=== PATIENT | female | born 1995 | race Caucasian/White ===

== ENCOUNTER 2019-06-02 08:33 | Outpatient (CLI) | payer OTHER, SELFPAY ==
--- NOTE | 2019-06-02 09:34 | US_ITS ---
WS: [id number] ULTRASOUND BREAST LEFT TECHNIQUE: Ultrasound left breast focused area of concern. CLINICAL INFORMATION: LT BREAST LUMP COMPARISON: None. FINDINGS: Ultrasound 9:00 position. Small echogenic focus measuring 4 x 3 mm likely represents a small lipoma. Tiny hypoechoic lesion at the 9:00 position measuring 3.6 x 2.3 mm appears to represent a tiny lymph node. No evidence of pathologic mass or lesion. No lesions to target for biopsy. Findings have a maciej gn appearance. US/US breast LT limited* [id number] IMPRESSION: BI-RADS 2 benign Follow up: Annual screening mammography age 38
== END 2019-06-02 08:34 | disposition home or self-care (01) ==
PROVIDERS: Family Provider Nurse Practitioner Family; PCP Nurse Practitioner Family; Visit Provider Nurse Practitioner
DX: N63.20 Unspecified lump in the left breast, unspecified quadrant (principal)
CPT/HCPCS: 76642

== ENCOUNTER 2019-08-27 06:58 | Day surgery (SDC) | payer OTHER, SELFPAY ==
[2019-08-27] VITALS (76 sets, daily range): BP systolic 119–174; BP diastolic 71–121; PULSE 82–113; RESP 13–25; TEMP 36.2–36.6; O2SAT 93–100; BMI 39.4
--- NOTE | 2019-08-27 07:08 | W.ED.ABDPA2 ---
HPI - Abdominal Pain General: Chief Complaint: Abdominal Pain Stated Complaint: ABD PAIN Time Seen by Provider: 08/27/19 07:08 History of Present Illness: HPI narrative: 23-year-old female with a known history of cholelithiasis has had problems intermittently for the last year she is learned to adapt her diet for the most part to avoid them. She previously had an appendectomy and a hysterectomy for endometriosis. She had considered getting gallbladder out and then seem to be able to control it by diet so it avoided at she last night she had some fast food and has severe right upper quadrant pain is biliary colic she is not in any vomiting but does severe nausea she denies any diarrhea or acholic stools she denies any hematemesis coffee-ground emesis no dysuria urgency or frequency. MD elicited complaint: abdominal pain Pertinent past history: other (Cholelithiasis) Onset (ago): hour(s) Location: Epigastric and RUQ Severity: severe Quality: cramping Radiation: R flank and back Exacerbating factors: eating Relieving factors: medication and rest Associated Symptoms: Denies bloating, chills, coffee ground emesis, constipation, diarrhea, dysuria, fever(s), hematochezia, hematemesis, melena, nausea and vomiting Treatments prior to arrival: prescription analgesics Review of Systems Const: Denies: fever, chills, body aches, change in appetite, fatigue or malaise ENMT: Denies: throat pain, ear pain, nasal discharge or nasal congestion Card: Denies: chest pain, edema, shortness of breath on exertion or shortness of breath when lying down Resp: Denies: shortness of breath, productive cough or non-productive cough GI: Denies: abdominal pain, nausea, vomiting, vomiting blood, coffee grounds in vomit, diarrhea, constipation, bloating, blood in stool or black tarry stool : Denies: flank pain, difficulty urinating, painful urination, urinary frequency or urinary urgency Skin/Breast: Denies: rash or itching [facility] ED PFSH: Medical History (Updated 08/27/19 @ 09:07 by Malvin Mariscal DO) Endometriosis Surgical History (Updated 08/27/19 @ 09:05 by Malvin Mariscal DO) H/O hysterectomy for benign disease S/P appendectomy Social History (Reviewed 08/27/19 @ 09:05 by GALILEO Ortiz Smoking and tobacco status: never smoked Physical Exam Const: COMMON NORMALS: no apparent distress GENERAL APPEARANCE: cooperative and comfortable ORIENTATION/CONSCIOUSNESS: Yes awake, Yes oriented to person, Yes oriented to place and Yes oriented to time HENMT: COMMON NORMALS: normocephalic, head/scalp atraumatic, hearing grossly normal bilaterally, external ears normal, EAC's normal, TM's normal bilaterally, nasal mucous membranes and turbinates normal, moist oral mucous membranes and oropharynx normal HEAD & SCALP: normocephalic and atraumatic NOSE: nasal mucous membranes and turbinates normal EXTERNAL EAR: Yes external ears normal EXTERNAL AUDITORY CANAL: EAC's normal TYMPANIC MEMBRANE: TM's normal bilaterally Eye: COMMON NORMALS: PERRL, EOMs intact bilaterally, conjunctivae normal and no scleral icterus CONJUNCTIVA: Yes conjunctivae normal PUPIL: Yes PERRL Neck/C-Spine: COMMON NORMALS: full ROM, no lymphadenopathy, supple and no JVD Lymph: LYMPHATIC: no lymphadenopathy noted and no lymphedema noted Resp: COMMON NORMALS: normal respiratory effort, no retractions, no use of accessory muscles and clear to auscultation bilaterally AUSCULTATION: clear to auscultation bilaterally Cardio: COMMON NORMALS: no JVD, regular rate, regular rhythm and no murmurs RATE: regular rate RHYTHM: regular rhythm GI: COMMON NORMALS: soft to palpation and no hepatosplenomegaly AUSCULTATION: Yes normoactive bowel sounds PALPATION: Yes soft, Yes tender Details: RUQ, No guarding and Yes no hepatosplenomegaly OTHER: Positive Castellanos sign Extremity: COMMON NORMALS: normal to inspection, normal capillary refill, no clubbing, cyanosis or edema, no calf tenderness and no pedal edema Neuro: SENSORIUM/ORIENTATION: Yes oriented to person, Yes oriented to place and Yes oriented to time Skin: COMMON NORMALS: no rashes or lesions noted GENERAL SKIN EXAM: no rashes or lesions noted Course Vital Signs: Vital signs: Vital Signs Temperature 97.5 F L 08/27/19 07:02 Pulse Rate 93 08/27/19 09:00 Respiratory Rate 16 08/27/19 09:00 Blood Pressure 150/94 08/27/19 09:55 Pulse Oximetry 99 08/27/19 09:50 MDM - Abdominal Pain MDM Narrative: Medical decision making narrative: Discussed with Dr. Carr and the patient. She has been having recurrent biliary colic. She is controlled at this point by avoiding particular foods she does not have any sign of infection but she is having uncontrollable pain and nausea here in the emergency room. After discussion both patient and the surgeon which is decided to go ahead with cholecystectomy. Patient will be admitted via Dr. Carr for laparoscopic cholecystectomy Medical Records: Attestation: I reviewed the patient's medical records. Lab Data: Attestation: I reviewed the patient's lab results. Labs: Lab Results 08/27/19 08/27/19 08/27/19 Range/Units 07:23 07:26 07:49 WBC 7.9 (4.0-10.0) 10^3/ uL RBC 4.98 (4.1-5.3) 10^6/u L Hgb 14.0 (11.5-15.3) g/dL Hct 44.7 (37.0-47.0) % MCV 89.8 (81-99) fL MCH 28.1 (28.0-34.0) pg MCHC 31.3 (30.0-36.0) g/dL RDW 13.2 (12.1-15.1) % Plt Count 331 (130-400) 10^3/c mm MPV 12.2 H (7.4-10.4) fL Neut % (Auto) 59.0 % Lymph % (Auto) 31.0 % [place] % (Auto) 5.6 % Eos % (Auto) 2.8 % Baso % (Auto) 0.6 % Neut # (Auto) 4.6 (1.8-7.7) 10^3/u L Lymph # (Auto) 2.4 (0.8-4.8) 10^3/u L [place] # (Auto) 0.4 (0.2-0.9) 10^3/u L Eos # (Auto) 0.2 (0.0-0.8) 10^3/u L Baso # (Auto) 0.1 (0.0-0.1) 10^3/u L Nucleated RBC % (a uto) 0 % Nucleated RBCs # 0.0 /100WBC Sodium (136-145) mmol/L Potassium (3.5-5.1) mmol/L Chloride (98-107) mmol/L Carbon Dioxide (22-29) mmol/L Anion Gap (5-19) BUN (6-20) mg/dL Creatinine (0.5-0.9) mg/dL GFR Calculation (90-130) mL/min Glucose (65-115) mg/dL Calculated Osmolal ity (285-295) mOsm/k g Calcium (8.5-10.5) mg/dL Total Bilirubin (0.15-1.2) mg/dL AST (0-32) U/L ALT (0-33) U/L Alkaline Phosphata se (35-105) IU/L Total Protein (6.6-8.7) g/dL Albumin (3.5-5.2) g/dL Globulin (1.3-4.6) g/dL Lipase (13-60) U/L Urine Color Yellow (Yellow) Urine Appearance Clear (CLEAR) Urine pH 7 (5-7) Ur Specific Gravit y 1.020 (1.005-1.030) Urine Protein Neg (Negative) Urine Glucose (UA) Norm (Normal) Urine Ketones Negative (Negative) Urine Blood Neg (Negative) Urine Nitrate Negative (Negative) Urine Bilirubin Neg (NEGATIVE) Urine Urobilinogen Norm (Negative) mg/dL Ur Leukocyte [place] Negative (Negative) Urine HCG, Qual Negative (Negative) 08/27/19 Range/Units 08:18 WBC (4.0-10.0) 10^3/ uL RBC (4.1-5.3) 10^6/u L Hgb (11.5-15.3) g/dL Hct (37.0-47.0) % MCV (81-99) fL MCH (28.0-34.0) pg MCHC (30.0-36.0) g/dL RDW (12.1-15.1) % Plt Count (130-400) 10^3/c mm MPV (7.4-10.4) fL Neut % (Auto) % Lymph % (Auto) % [place] % (Auto) % Eos % (Auto) % Baso % (Auto) % Neut # (Auto) (1.8-7.7) 10^3/u L Lymph # (Auto) (0.8-4.8) 10^3/u L [place] # (Auto) (0.2-0.9) 10^3/u L Eos # (Auto) (0.0-0.8) 10^3/u L Baso # (Auto) (0.0-0.1) 10^3/u L Nucleated RBC % (a uto) % Nucleated RBCs # /100WBC Sodium 138 (136-145) mmol/L Potassium 4.2 (3.5-5.1) mmol/L Chloride 103 (98-107) mmol/L Carbon Dioxide 23 (22-29) mmol/L Anion Gap 16.2 (5-19) BUN 19 (6-20) mg/dL Creatinine 0.7 (0.5-0.9) mg/dL GFR Calculation 102.0 (90-130) mL/min Glucose 105 (65-115) mg/dL Calculated Osmolal ity 283 L (285-295) mOsm/k g Calcium 9.9 (8.5-10.5) mg/dL Total Bilirubin 0.3 (0.15-1.2) mg/dL AST 21 (0-32) U/L ALT 28 (0-33) U/L Alkaline Phosphata se 102 (35-105) IU/L Total Protein 7.7 (6.6-8.7) g/dL Albumin 4.6 (3.5-5.2) g/dL Globulin 3.1 (1.3-4.6) g/dL Lipase 42 (13-60) U/L Urine Color (Yellow) Urine Appearance (CLEAR) Urine pH (5-7) Ur Specific Gravit y (1.005-1.030) Urine Protein (Negative) Urine Glucose (UA) (Normal) Urine Ketones (Negative) Urine Blood (Negative) Urine Nitrate (Negative) Urine Bilirubin (NEGATIVE) Urine Urobilinogen (Negative) mg/dL Ur Leukocyte Alena ase (Negative) Urine HCG, Qual (Negative) Discharge Plan Discharge Patient Disposition: Admitted As Inpatient Clinical Impression: Cholelithiasis, Recurrent biliary colic Condition: Stable Referrals: Fortunato Rush APN [Primary Care Provider] - Coding Level of Care Code ED Geochemical Manager for Chg Fwd Exam Comprehensive
--- NOTE | 2019-08-27 07:12 | USR_ITS ---
PROCEDURE INFORMATION: Exam: US Abdomen Limited, Right Upper Quadrant Exam date and time: 08/27/2019 8:05 AM Age: 23 years old Clinical indication: Abdominal pain; Epigastric; Additional info: Ruq abd pain TECHNIQUE: Imaging protocol: Real-time ultrasound of the abdomen with image documentation. Examination was focused on the right upper quadrant. COMPARISON: No relevant prior studies available. FINDINGS: Liver: Mild fatty liver. Gallbladder: There are stones in the gallbladder. No wall thickening. Common bile duct: No stones. No dilation. Pancreas: The pancreas was not seen due to overlying bowel gas. Right kidney: No mass. No hydronephrosis. US/US gall bladder [id number] IMPRESSION: Cholelithiasis.
[2019-08-27 08:10] LABS: Add Urine Microscopic? NO
[2019-08-27 08:12] LABS: Basophils # 0.1 10^3/uL (0.0-0.1); Basophils % 0.6 %; Eosinophils # 0.2 10^3/uL (0.0-0.8); Eosinophils % 2.8 %; Hematocrit 44.7 % (37.0-47.0); Lymphocytes # 2.4 10^3/uL (0.8-4.8); Mean Corpuscular HGB Conc 31.3 g/dL (30.0-36.0); Mean Corpuscular Hemoglobin 28.1 pg (28.0-34.0); Mean Corpuscular Volume 89.8 fL (81-99); Mean Platelet Volume 12.2 fL (7.4-10.4); Monocytes # 0.4 10^3/uL (0.2-0.9); Monocytes % 5.6 %; Neutrophils # 4.6 10^3/uL (1.8-7.7); Nucleated Red Blood Cells % 0 %; Platelet Count 331 10^3/cmm (130-400); Red Blood Count 4.98 10^6/uL (4.1-5.3); Red Cell Distribution Width 13.2 % (12.1-15.1); White Blood Count 7.9 10^3/uL (4.0-10.0)
[2019-08-27 08:22] LABS: Bilirubin Urine Neg (NEGATIVE); Blood Urine Neg (Negative); Glucose Urine UA Norm (Normal); Ketones Urine Negative (Negative); Nitrate Urine Negative (Negative); Protein Urine Neg (Negative); Urine Appearance Clear (CLEAR); Urine Color Yellow (Yellow); pH Urine 7 (5-7)
[2019-08-27 08:23] LABS: Leukocyte Esterase Urine Negative (Negative); Urobilinogen Urine Norm (Negative)
[2019-08-27] MEDS: ondansetron 2 mg/ML SDV 2 mL 4 MG IVP ×3 (08:25→15:50)
[2019-08-27] MEDS: sodium chloride 0.9% 1,000 ML 999 ML IV ×2 (08:26→09:22)
[2019-08-27] MEDS: morphine 4 mg/mL SDV 1 mL IVP (08:38)
[2019-08-27 08:45] LABS: Alanine Aminotransferase 28 U/L (0-33); Albumin Level 4.6 g/dL (3.5-5.2); Alkaline Phosphatase 102 IU/L (35-105); Anion Gap 16.2 (5-19); Aspartate Amino Transferase 21 U/L (0-32); Blood Urea Nitrogen 19 mg/dL (6-20); Calcium 9.9 mg/dL (8.5-10.5); Carbon Dioxide 23 mmol/L (22-29); Chloride 103 mmol/L (98-107); Creatinine Clr Calc Pharmacy 144.5893; Globulin 3.1 g/dL (1.3-4.6); Glucose 105 mg/dL (65-115); Lipase 42 U/L (13-60); Osmolality Calculated 283 mOsm/kg (285-295); Potassium 4.2 mmol/L (3.5-5.1); Sodium 138 mmol/L (136-145); Total Bilirubin 0.3 mg/dL (0.15-1.2); Total Protein 7.7 g/dL (6.6-8.7)
[2019-08-27] MEDS: promethazine 25 mg/mL SDV 1 mL IM (09:02)
[2019-08-27] MEDS: sodium chlor 0.9% + KCl 20 mEq 20 MEQ/1,000 ML BAG 125 MEQ IV (10:26)
[2019-08-27] MEDS: promethazine 25 mg/mL SDV 1 mL 12.5 MG IM (12:38)
--- NOTE | 2019-08-27 12:48 | P.ANESASSM_ITS ---
Pre-Anesthetic Assessment Pre-Anesthetic Assessment: Height/Weight: Height 1.63 m Weight 104.326 kg Temp Pulse Resp BP Pulse Ox 97.5 F L 91 18 137/100 98 08/27/19 07:02 08/27/19 12:41 08/27/19 12:41 08/27/19 12:41 08/27/19 12:41 Preop Diagnosis: Symptomatic cholelithiasis Proposed Procedure: Operation Date: 08/27/19 13:20 Proposed Procedures p Laparoscopic Cholecystectomy(Not Applicable) - Karsten Carr MD Last intake: Intake Last Liquid Date 08/27/19 Last Liquid Time 03:00 Last Solid Date 08/26/19 Last Solid Time 20:00 Social: Social History: No alcohol and No tobacco Exam: Pre-Anes Outpt Exam: alert, oriented x 3, clear to auscultation bilaterally and regular rate & rhythm Airway: Submandibular: WNL Cervical ROM: WNL MP: 3 Dentition: Other (ok dentation) History/ROS: No significant history except as noted Pulmonary: Pulmonary: Asthma (mild) CV/HEM: CV/HEM: None reported : : None reported Hepatic: Hepatic: None reported GI: GI: GERD Metabolic: Metabolic: Morbid obesity Musc/skel: Musc/skel: None reported Neuropsych: Neuropsych: Anxiety and Depression Anesthetic Plan: ASA status: 2E Anesthesia: Anesthesia Evaluation and General Risk of > 500 ml blood loss (7ml/kg in children): No Meds/Allergies Current Medications: Current Medications Generic Name Dose Route Start Last Admin Trade Name Freq PRN Reason Stop Dose Admin Potassium Chloride /Sodium Chloride 20 meq in 1,000 m ls @ 125 mls/hr 08/27/19 09:30 08/27/19 10:26 Sodium Chlor 0.9 % + Kcl 20 Meq IV 125 mls/hr .Q8H MIGUEL Administration Promethazine HCl 12.5 mg 08/27/19 12:32 08/27/19 12:38 Phenergan IM 12.5 mg ONCE PRN Administration NAUSEA PFSH Anesthesia PFSH: Medical History Endometriosis Surgical History H/O hysterectomy for benign disease S/P appendectomy Social History Smoking and tobacco status: never smoked Data Anesthesia CBC & Chem 7: 08/27/19 07:49 08/27/19 08:18 Other Labs: Laboratory Results - last 48 hr 08/27/19 08/27/19 08/27/19 07:23 07:26 07:49 WBC 7.9 RBC 4.98 Hgb 14.0 Hct 44.7 MCV 89.8 MCH 28.1 MCHC 31.3 RDW 13.2 Plt Count 331 MPV 12.2 H Neut % (Auto) 59.0 Lymph % (Auto) 31.0 [place] % (Auto) 5.6 Eos % (Auto) 2.8 Baso % (Auto) 0.6 Neut # (Auto) 4.6 Lymph # (Auto) 2.4 [place] # (Auto) 0.4 Eos # (Auto) 0.2 Baso # (Auto) 0.1 Nucleated RBC % (auto) 0 Nucleated RBCs # 0.0 Sodium Potassium Chloride Carbon Dioxide Anion Gap BUN Creatinine GFR Calculation Glucose Calculated Osmolality Calcium Total Bilirubin AST ALT Alkaline Phosphatase Total Protein Albumin Globulin Lipase Urine Color Yellow Urine Appearance Clear Urine pH 7 Ur Specific [place] 1.020 Urine Protein Neg Urine Glucose (UA) Norm Urine Ketones Negative Urine Blood Neg Urine Nitrate Negative Urine Bilirubin Neg Urine Urobilinogen Norm Ur Leukocyte Esterase Negative Urine HCG, Qual Negative 08/27/19 08:18 WBC RBC Hgb Hct MCV MCH MCHC RDW Plt Count MPV Neut % (Auto) Lymph % (Auto) [place] % (Auto) Eos % (Auto) Baso % (Auto) Neut # (Auto) Lymph # (Auto) [place] # (Auto) Eos # (Auto) Baso # (Auto) Nucleated RBC % (auto) Nucleated RBCs # Sodium 138 Potassium 4.2 Chloride 103 Carbon Dioxide 23 Anion Gap 16.2 BUN 19 Creatinine 0.7 GFR Calculation 102.0 Glucose 105 Calculated Osmolality 283 L Calcium 9.9 Total Bilirubin 0.3 AST 21 ALT 28 Alkaline Phosphatase 102 Total Protein 7.7 Albumin 4.6 Globulin 3.1 Lipase 42 Urine Color Urine Appearance Urine pH Ur Specific [place] Urine Protein Urine Glucose (UA) Urine Ketones Urine Blood Urine Nitrate Urine Bilirubin Urine Urobilinogen Ur Leukocyte Esterase Urine HCG, Qual Cardiac Studies: No Data to Display
[2019-08-27] MEDS: sodium chloride 0.9% 1,000 ML 30 ML IV (12:49)
--- NOTE | 2019-08-27 13:28 | P.HP_ITS ---
Providers/Chief Complaint Primary Care Provider: Fortunato Rush APN Chief Complaint: CHOLECYSTECTOMY History of Present Illness Irish Bone is a 23 year old female who was diagnosed with gallstones about a year ago and has been having intermittent episodes of abdominal pain especially after eating fatty foods for the last 1 year. Patient states that she ate chicken last night and subsequently woke up this morning with epigastric right upper quadrant pain radiating to the back. Denies any fever chills or jaundice. Review of Systems General: Reports: 10 or more systems reviewed and unremarkable except in HPI and below Medications/Allergies Home Medications Medication Instructions Recorded Confirmed Last Taken Type acyclovir 400 mg PO PRN PRN 08/27/19 08/27/19 Unknown History albuterol sulfate [Ventolin HFA] See Rx Instructions .ROUTE .COMPLEX 08/27/19 08/27/19 Unknown History montelukast 10 mg PO DAILY 08/27/19 08/27/19 08/26/19 History venlafaxine 150 mg PO DAILY 08/27/19 08/27/19 08/26/19 History Allergies Allergy/AdvReac Type Severity Reaction Status Date / Time Penicillins Allergy ALGY-Rash Verified 08/27/19 07:07 PFSH Acute PFSH: Medical History Endometriosis Surgical History H/O hysterectomy for benign disease S/P appendectomy Social History Smoking and tobacco status: never smoked Vitals/I&O/Wt Last Vital Signs Temp 97.7 F 08/27/19 12:44 Pulse 93 08/27/19 12:44 Resp 18 08/27/19 12:44 BP 138/97 08/27/19 12:44 Pulse Ox 95 08/27/19 12:44 08/26/19 08/27/19 08/27/19 22:59 06:59 14:59 Intake Total 1500 / 1500 Balance 1500 / 1500 Weight last 48 hrs Weight 230 lb Physical Exam Narrative: EXAM NARRATIVE: HEENT: Normocephalic Eye: Sclera /conjunctiva normal Respiratory and chest: Bilateral clear breath sounds on auscultation Cardiovascular: Normal S1 and S2 heart sounds Abdomen: Soft to palpation, tender right upper quadrant and epigastric region Neurological: Oriented to place person and time Skin: Intact, no lesions appreciated on gross exam Data : 08/27/19 07:49 08/27/19 08:18 A&P Assessment and plan (1) Cholelithiasis: 23-year-old female with symptomatic cholelithiasis. Plan for laparoscopic possible open cholecystectomy Procedure, risks, benefits and alternatives have been discussed with the patient who wishes to proceed with surgery. Status: Acute Attestations Medical Necessity Statement*: Symptomatic cholelithiasis Coding Level of Care Code Acute Deputy Editor In Chief for Joe Lowry Diagnoses Cholelithiasis K80.20
[2019-08-27] MEDS: scopolamine 1.5 Patch 1 PATCH TRANSDERMA (13:37)
[2019-08-27] MEDS: ciprofloxacin 400 MG/200 ML PREMIX 200 MG IV (13:42)
--- NOTE | 2019-08-27 14:44 | PM.OP ---
Operative Report Date of procedure: August 27, 2019 Pre-op Diagnosis: Symptomatic cholelithiasis Post-op diagnosis: same Procedure Done: Laparoscopic cholecystectomy Specimens removed/disposition: Gallbladder Surgeon: Karsten Carr Anesthesia: General Estimated blood loss (mL): 10 Condition: stable Disposition: PACU Procedure: The patient was taken to the operating room and was intubated under general anesthesia. After the antibiotic had been administered, the abdomen was prepped and draped in a sterile manner. Using a #15 blade, a 1 centimeter infraumbilical curvilinear incision was made and using an open Faye technique the peritoneal cavity was entered. A 10 millimeter port was placed and 15 millimeters of pneumoperitoneum was created. A 10 millimeter, 30 degrees scope was then introduced. Three 5 millimeter ports were placed in the epigastric, midclavicular and the anterior axillary line two fingerbreadths below the costal margin on the right side under the direct visualization. Gallbladder was mildly inflamed and it was decompressed using an aspiration needle. Ratcheted forceps were introduced into the lateral most port and was used to retract the fundus of the gallbladder cephalad and using forceps the infundibulum of the gallbladder was retracted laterally. Using L-hook cautery the peritoneum overlying the Calot's triangle was opened medially and laterally until the cystic duct and the cystic artery were skeletonized. Dissection was carried along the body of the gallbladder and after ensuring critical view of safety, 4 clips applied on the cystic duct and 3 clips applied on the cystic artery and cut leaving, 3 clips on the remaining portion of the duct and 2 clips on the remaining portion of the artery. The rest of the gallbladder was dissected off the liver using L-hook cautery. There was no bleeding or bile leaking noted from the gallbladder fossa and the clips appeared to be in place. An EndoCatch bag was introduced to remove the gallbladder. All the ports were removed under direct visualization and there was no bleeding noted from the port sites. The fascia of the umbilicus was closed using [id number] 0 Vicryl sutures and the subcutaneous tissue was approximated using 3-0 Vicryl sutures. The skin at all four ports were closed using 4-0 Monocryl and Dermabond. A total of 10 millimeters of 0.5% Marcaine was infiltrated around the port sites. The patient was stable throughout the procedure.
--- NOTE | 2019-08-27 15:10 | SUR.PHASEI ---
1505 PATIENT TO PACU AT THIS TIME FROM OR. ORAL AIRWAY IN PLACE. SPO2 97% ON SIMPLE MASK AT 8L. 4 INCISIONS TO ABDOMEN, CLOSED WITH LEANDER GUERRIER. PATIENT RESTLESS ON ARRIVAL TO PACU. ORAL AIRWAY REMOVED. SPO2 98% ON SIMPLE MASK.
[2019-08-27] MEDS: fentaNYL 50 mcg/mL INJ 2mL IVP ×2 (15:22→15:28)
[2019-08-27] MEDS: morphine 4 mg/mL SDV 1 mL 2 MG IVP (15:34)
[2019-08-27] MEDS: HYDROcodone-acetaminophen 5-325 mg Tablet 1 TAB PO (15:53)
--- NOTE | 2019-08-27 15:54 | SUR.PHASEI ---
1558 PATIENT CARE ASSUMED BY [facility], IN OPS AT THIS TIME. PATIENT A/OX3. RR EVEN AND UNLABORED. ICE PACK GIVEN FOR PATIENT COMFORT. NAUSEA IMPROVED. TOLERATING SIPS OF SPRITE AND CRACKERS. 4 INCISIONS TO ABDOMEN, CDI.
== END 2019-08-27 16:30 | disposition home or self-care (01) ==
LOC: ER 09:40 → OPS 09:43
PROVIDERS: Emergency Provider Family Medicine; Family Provider Nurse Practitioner Family; PCP Nurse Practitioner Family; Visit Provider Surgery
PROC: 0FT44ZZ Resection of Gallbladder, Percutaneous Endoscopic Approach (ICD-10-PCS; CPT 47562; principal; 2019-08-27 13:00)
DX: K80.10 Calculus of gallbladder with chronic cholecystitis without obstruction (principal); J45.909 Unspecified asthma, uncomplicated; K21.9 Gastro-esophageal reflux disease without esophagitis; E66.01 Morbid (severe) obesity due to excess calories; Z68.39 Body mass index [BMI] 39.0-39.9, adult
CPT/HCPCS: 47562; 12345; 76705; 80053; 81003; 81025; 83690; 85025; 88304; 96372; 96375; 99284; A9270; J0131; J0744; J1100; J1200; J2001; J2250; J2270; J2405; J2550; J2704; J2710; J2765; J3010; J3490; J7030

== ENCOUNTER → 2019-12-14 08:34 | Outpatient (BNVA) | payer OTHER, SELFPAY | PROVIDERS: Family Provider Nurse Practitioner Family; PCP Nurse Practitioner Family; Visit Provider Psychiatry & Neurology Neurology | DX: F33.2 Major depressive disorder, recurrent severe without psychotic features (principal); F41.1 Generalized anxiety disorder | CPT/HCPCS: 90791 ==

== ENCOUNTER → 2020-01-06 14:44 | Outpatient (BNVA) | payer OTHER, SELFPAY | PROVIDERS: Family Provider Nurse Practitioner Family; PCP Nurse Practitioner Family; Visit Provider Psychiatry & Neurology Psychiatry | DX: F33.1 Major depressive disorder, recurrent, moderate (principal); F43.10 Post-traumatic stress disorder, unspecified | CPT/HCPCS: 90792 ==

== ENCOUNTER 2020-01-10 16:51 | Outpatient (CLI) | payer OTHER, SELFPAY ==
[2020-01-11 19:46] LABS: Coronavirus Lab Test PTC Negative
== END 2020-01-10 16:52 | disposition home or self-care (01) ==
PROVIDERS: PCP Nurse Practitioner Family; Visit Provider Emergency Medicine
DX: Z11.59 Encounter for screening for other viral diseases (principal)
CPT/HCPCS: 87635

== ENCOUNTER → 2020-01-18 14:34 | Outpatient (BNVA) | payer OTHER, SELFPAY | PROVIDERS: PCP Nurse Practitioner Family; Visit Provider Psychiatry & Neurology Psychiatry | DX: F43.10 Post-traumatic stress disorder, unspecified (principal); F33.1 Major depressive disorder, recurrent, moderate | CPT/HCPCS: 99214 ==

== ENCOUNTER 2020-02-20 19:11 | Emergency (ER) | payer OTHER, SELFPAY ==
[2020-02-20 19:32] VITALS: BP 135/93; PULSE 97; RESP 18; TEMP 36.2; O2SAT 98; BMI 39.4
--- NOTE | 2020-02-20 20:01 | ED_ITS ---
HPI - General Adult General: Chief complaint: General Medical Stated complaint: n/v/weakness Time Seen by Provider: 02/20/20 20:01 History of Present Illness: HPI narrative: Patient is a 24-year-old female comes to the ED with nausea/vomiting and weakness. Patient says symptoms started with the last 24 hours. She reports not drinking enough fluids over the past couple days due to being busy at work. She also describes having some generalized weakness and lack of energy as well. Today patient had multiple episodes of emesis. She says that today she woke up with cold sweats after a nap. Denies any fever, chills, chest pain, shortness of breath, cough, abdominal pain, bladder or bowel symptoms. Endorses some mild lower back pain. Associated symptoms: Reports headache(s) (mild headache), nausea and vomiting; Deny chest pain, dyspnea, rash or palpitations Review of Systems Const: Reports: fatigue; Denies: fever(s) or chills Eyes: Denies: change in vision or eye discomfort ENMT: Denies: throat pain, odynophagia, nasal discharge or nasal congestion Card: Reports: lightheadedness; Denies: chest pain, palpitations, edema, swelling of feet/ankles, dyspnea on exertion or orthopnea Resp: Denies: dyspnea, productive cough or non-productive cough GI: Reports: nausea and vomiting; Denies: abdominal pain, diarrhea, constipation or hematochezia : Denies: flank pain, dysuria or hematuria Musc: Denies: neck pain, back pain or extremity swelling Skin/Breast: Denies: rash or new lesions Neuro: Reports: headache(s) (mild headache); Denies: numbness in extremities or weakness in extremities PFSH ED PFSH: Medical History Asthma Endometriosis MDD (major depressive disorder) PTSD (post-traumatic stress disorder) Surgical History H/O hysterectomy for benign disease S/P appendectomy Status post laparoscopic cholecystectomy (~08/27/19) Social History Smoking and tobacco status: never smoked Second hand smoke exposure: Yes ( smokes occasionally) Alcohol intake: never Current gender identity: Female Physical Exam Const: COMMON NORMALS: no acute distress, patient oriented x3, healthy ap pearing and alert GENERAL APPEARANCE: cooperative and comfortable HENMT: COMMON NORMALS: normocephalic HEAD & SCALP: normocephalic MOUTH: Normal oral and palatal mucosa present THROAT: posterior oropharynx normal and uvula midline Eye: COMMON NORMALS: Equal, round and reactive pupils present PUPIL: Yes Equal, round and reactive pupils present Neck/C-Spine: COMMON NORMALS: supple GENERAL: Yes normal visual inspection Resp: COMMON NORMALS: normal respiratory effort, No retractions, No use of accessory muscles and clear to auscultation bilaterally AUSCULTATION: clear to auscultation bilaterally Cardio: COMMON NORMALS: regular rate, regular rhythm, S1 normal heart sound present, S2 normal heart sound present, No gallops present (Cardio), No clicks present (Cardio), No murmurs present (Cardio) and Peripheral pulses 2+ throughout RATE: regular rate RHYTHM: regular rhythm HEART SOUNDS: S1 normal heart sound present and S2 normal heart sound present PERIPHERAL PULSES: Peripheral pulses 2+ throughout GI: COMMON NORMALS: Normal to inspection, nondistended, normoactive bowel sounds present, Soft to palpation and no masses PALPATION: Yes Soft to palpation and Yes Tenderness to palpation present (GI) (Periumbilical tenderness-mild) : COMMON NORMALS: Yes no CVA tenderness BLADDER/KIDNEY EXAM: Yes no CVA tenderness Back/Pelvis: COMMON NORMALS: no CVA tenderness Extremity: GENERAL: Yes normal exam except as noted Neuro: COMMON NORMALS: patient oriented x3 and moves all extremities SENSORIUM/ORIENTATION: Yes alert Skin: COMMON NORMALS: no rashes or lesions noted GENERAL SKIN EXAM: no rashes or lesions noted and dry skin Course Vital Signs: Vital signs: Vital Signs Temperature 97.2 F L 02/20/20 19:32 Pulse Rate 86 02/20/20 22:50 Respiratory Rate 16 02/20/20 22:50 Blood Pressure 138/74 02/20/20 22:50 Pulse Oximetry 98 02/20/20 22:50 MDM - General Adult MDM Narrative: Medical decision making narrative: Patient is a 24-year-old fe male comes to the ED with nausea and vomiting. Denies any fever, chills, cough, diarrhea or UTI symptoms. Physical exam shows a patient in no acute distress or pain. Physical exam showed some mild periumbilical tenderness upon palpation. The rest of the physical exam was unremarkable. White blood cell count 12.3 the rest of CBC, CMP and UA were unremarkable. hCG negative. Lipase 51. CT of the abdomen showed no acute findings. Patient nausea improved with IV fluids and nausea meds. She had no episodes of emesis while here in the ED. Patient was discharged and told to follow-up with PCP in 7 to 10 days for reevaluation. Patient has some Zofran at home to help with nausea. Drink plenty of fluids and stay hydrated. Return to ED precautions given. Patient understood and agree with plan. Lab Data: Attestation: I reviewed the patient's lab results. Labs: Lab Results 02/20/20 02/20/20 02/20/20 Range/Units 20:15 20:15 20:15 WBC 12.3 H (4.0-10.0) 10^3/ uL RBC 5.34 H (4.1-5.3) 10^6/u L Hgb 15.2 (11.5-15.3) g/dL Hct 45.4 (37.0-47.0) % MCV 85.0 (81-99) fL MCH 28.5 (28.0-34.0) pg MCHC 33.5 (30.0-36.0) g/dL RDW 13.1 (12.1-15.1) % Plt Count 377 (130-400) 10^3/c mm MPV 10.7 H (7.4-10.4) fL Neut % (Auto) 72.6 % Lymph % (Auto) 21.1 % Finney % (Auto) 4.1 % Eos % (Auto) 1.0 % Baso % (Auto) 0.6 % Neut # (Auto) 8.93 H (1.8-7.7) 10^3/u L Lymph # (Auto) 2.6 (0.8-4.8) 10^3/u L Finney # (Auto) 0.5 (0.2-0.9) 10^3/u L Eos # (Auto) 0.1 (0.0-0.8) 10^3/u L Baso # (Auto) 0.1 (0.0-0.1) 10^3/u L Nucleated RBC % (a uto) 0 % Nucleated RBCs # 0.0 /100WBC Sodium 137 (136-145) mmol/L Potassium 3.6 (3.5-5.1) mmol/L Chloride 103 (98-107) mmol/L Carbon Dioxide 23 (22-29) mmol/L Anion Gap 14.6 (5-19) BUN 16 (6-20) mg/dL Creatinine 0.7 (0.5-0.9) mg/dL GFR Calculation 101.1 (90-130) mL/min Glucose 98 (65-115) mg/dL Calculated Osmolal ity 285 (285-295) mOsm/k g Calcium 9.3 (8.5-10.5) mg/dL Total Bilirubin 0.2 (0.15-1.2) mg/dL AST 18 (0-32) U/L ALT 25 (0-33) U/L Alkaline Phosphata se 109 H (35-105) IU/L Total Protein 7.8 (6.6-8.7) g/dL Albumin 4.5 (3.5-5.2) g/dL Globulin 3.3 (1.3-4.6) g/dL Lipase 51 (13-60) U/L HCG, Qual Negative (Negative) Urine Color (Yellow) Urine Appearance (CLEAR) Urine pH (5-7) Ur Specific Gravit y (1.005-1.030) Urine Protein (Negative) Urine Glucose (UA) (Normal) Urine Ketones (Negative) Urine Blood (Negative) Urine Nitrate (Negative) Urine Bilirubin (Negative) Urine Urobilinogen (Negative) mg/dL Ur Leukocyte Alena ase (Negative) Urine RBC (0-2) /hpf Urine WBC (0-5) /hpf Ur Squamous Epith Cells (0-5) /hpf Amorphous Sediment Urine Bacteria (NONE) /hpf Urine Mucus /hpf 02/20/20 Range/Units 20:15 WBC (4.0-10.0) 10^3/ uL RBC (4.1-5.3) 10^6/u L Hgb (11.5-15.3) g/dL Hct (37.0-47.0) % MCV (81-99) fL MCH (28.0-34.0) pg MCHC (30.0-36.0) g/dL RDW (12.1-15.1) % Plt Count (130-400) 10^3/c mm MPV (7.4-10.4) fL Neut % (Auto) % Lymph % (Auto) % Finney % (Auto) % Eos % (Auto) % Baso % (Auto) % Neut # (Auto) (1.8-7.7) 10^3/u L Lymph # (Auto) (0.8-4.8) 10^3/u L Finney # (Auto) (0.2-0.9) 10^3/u L Eos # (Auto) (0.0-0.8) 10^3/u L Baso # (Auto) (0.0-0.1) 10^3/u L Nucleated RBC % (a uto) % Nucleated RBCs # /100WBC Sodium (136-145) mmol/L Potassium (3.5-5.1) mmol/L Chloride (98-107) mmol/L Carbon Dioxide (22-29) mmol/L Anion Gap (5-19) BUN (6-20) mg/dL Creatinine (0.5-0.9) mg/dL GFR Calculation (90-130) mL/min Glucose (65-115) mg/dL Calculated Osmolal ity (285-295) mOsm/k g Calcium (8.5-10.5) mg/dL Total Bilirubin (0.15-1.2) mg/dL AST (0-32) U/L ALT (0-33) U/L Alkaline Phosphata se (35-105) IU/L Total Protein (6.6-8.7) g/dL Albumin (3.5-5.2) g/dL Globulin (1.3-4.6) g/dL Lipase (13-60) U/L HCG, Qual (Negative) Urine Color Yellow (Yellow) Urine Appearance Clear (CLEAR) Urine pH 5 (5-7) Ur Specific Gravit y 1.025 (1.005-1.030) Urine Protein Neg (Negative) Urine Glucose (UA) Norm (Normal) Urine Ketones Negative (Negative) Urine Blood Neg (Negative) Urine Nitrate Negative (Negative) Urine Bilirubin Neg (Negative) Urine Urobilinogen Norm (Negative) mg/dL Ur Leukocyte Alena ase Negative (Negative) Urine RBC None (0-2) /hpf Urine WBC 0-4 H (0-5) /hpf Ur Squamous Epith Cells 0-4 H (0-5) /hpf Amorphous Sediment Not Reportable Urine Bacteria 1+ H (NONE) /hpf Urine Mucus Trace /hpf Imaging Data^: CT Abd/Pel: Attestation: I personally reviewed and interpreted this imaging study as follows: Radiologist's impression: [address] [address] [address] Scan Report Signed Patient: [facility] #: [id number] : 1995 Age/Sex: 24 / F ADM Date: 02/20/20 Loc: ER Room/Bed: Attending Dr: Ordering Provider/Ordering MD: Roman Hopper Date of Service: 02/20/20 Procedure(s): CT abdomen wo con [id number] Accession Number(s): [id number] Report Number: [id number] PROCEDURE INFORMATION: Exam: CT Abdomen Without Contrast Exam date and time: 02/20/2020 9:55 PM Age: 24 years old Clinical indication: Nausea and vomiting; Abdominal pain; Periumbilical; Prior surgery; Surgery type: Hyst, gb, appy; Additional info: N/v with abdom tenderness TECHNIQUE: Imaging protocol: Computed tomography images of the abdomen without contrast. Radiation optimization: All CT scans at this facility use at least one of these dose optimization techniques: automated exposure control; mA and/or kV adjustment per patient size (includes targeted exams where dose is matched to clinical indication); or iterative reconstruction. COMPARISON: CT abdomen pelvis w con* [id number] 08/26/2018 10:21 AM RADIATION DOSE METRICS: Total DLP (mGy-cm): 1421.27 FINDINGS: Lungs: Limited assessment of the lung bases fails to reveal evidence for active cardiopulmonary process. Evidence of antecedent granulomatous disease. Liver: Normal. No mass. Gallbladder and bile ducts: Status post cholecystectomy. Pancreas: Normal. No ductal dilation. Spleen: Normal. No splenomegaly. Adrenals: Normal. No mass. Kidneys and ureters: Very tiny nonobstructing calyceal nephrolithiasis foci equator left kidney under 2 mm. No hydronephrosis or perinephric fluid bilaterally. Right kidney unremarkable. Stomach and bowel: Visualized stomach and bowel are unremarkable. No obstruction. No mucosal thickening. Appendix: Status post appendectomy. Intraperitoneal space: Unremarkable. No free air. No significant fluid collection. Lymph nodes: No visible active mesenteric or retroperitoneal lymphadenopathy. Vasculature: Unremarkable. No abdominal aortic aneurysm. Bladder: Urinary bladder unremarkable. Reproductive: Status post hysterectomy. Bones/joints: No visible active osseous pathology. Soft tissues: Unremarkable. CT/CT abdomen wo con [id number] IMPRESSION: 1. Currently no visible evidence of acute abdominal or pelvic pathologic process. 2. Very tiny nonobstructing calyceal nephrolithiasis foci equator left kidney under 2 mm. No hydronephrosis or perinephric fluid bilaterally. Radiation Dose CTDIVOL = (mGy): DLP = 1421.27 (mGy-cm) Dictated By: Greg Rivera Signed By: Greg Rivera Signed Date/Time: 02/20/202237 DD/ 36 Discharge Plan Discharge Patient Disposition: Home Clinical Impression: Nausea & vomiting Qualifiers: Vomiting type: unspecified Vomiting Intractability: non-intractable Qualified Code(s): R11.2 - Nausea with vomiting, unspecified Abdominal tenderness, periumbilical Qualifiers: Presence of rebound: absent Qualified Code(s): R10.815 - Periumbilic abdominal tenderness Condition: Stable Prescriptions: No Action venlafaxine 75 mg capsule,extended release 24hr 225 mg PO DAILY 30 Days Qty: 90 RF: 3 zolpidem 5 mg tablet 5 mg PO .qhs 30 Days Qty: 30 RF: 3 estradiol 1 mg tablet 1 mg PO DAILY RF: 0 montelukast 10 mg tablet 10 mg PO DAILY RF: 0 Ventolin HFA 90 mcg/actuation HFA aerosol inhaler See Rx Instructions .ROUTE .COMPLEX RF: 0 Discharge Orders: Discharge Order (Routine); Ordered 02/20/20 Ordered By: Roman Hopper Referrals: Adri Bucio APN [Primary Care Provider] - Discharge Diet: Advance as tolerated Discharge Activity: Increase activity as tolerated Activity Restrictions/Additional Instructions: Follow-up with medical provider as directed 5-7 days. Take all medications as prescribed. Use your previously prescribed Zofran for nausea. Drink plenty of fluids and stay hydrated. Return to the ER or your medical provider if condition worsens. Please read and understand discharge instructions. If any questions, please ask. Discharge Date/Time: 02/20/20 22:52 Coding Level of Care Code ED Shank Cutter for Chg Fwd Exam Comprehensive
--- NOTE | 2020-02-20 20:03 | XRR_ITS ---
PROCEDURE INFORMATION: Exam: XR Chest, 1 View Exam date and time: 02/20/2020 8:25 PM Age: 24 years old Clinical indication: Cough; Patient HX: N/v/ weakness chest pain last week; Additional info: Increased inhaler use and cough TECHNIQUE: Imaging protocol: XR of the chest Views: 1 view. COMPARISON: CR Chest 1 [place] [id number] 01/12/2016 1:16 PM FINDINGS: Lungs: No lung consolidation or pulmonary edema. Pleural space: No pleural effusion or pneumothorax. Heart/Mediastinum: The cardiac silhouette is not enlarged. The mediastinal contours are normal. Bones/joints: No acute osseous abnormality. XR/XR chest 1V portable [id number] IMPRESSION: No acute abnormality.
[2020-02-20] MEDS: ondansetron 2 mg/ML SDV 2 mL 4 MG IVP (20:26)
[2020-02-20] MEDS: sodium chloride 0.9% 1,000 ML 999 ML IV (20:26)
[2020-02-20 20:29] LABS: Basophils # 0.1 10^3/uL (0.0-0.1); Basophils % 0.6 %; Eosinophils # 0.1 10^3/uL (0.0-0.8); Hematocrit 45.4 % (37.0-47.0); Hemoglobin 15.2 g/dL (11.5-15.3); Lymphocytes # 2.6 10^3/uL (0.8-4.8); Lymphocytes % 21.1 %; Mean Corpuscular HGB Conc 33.5 g/dL (30.0-36.0); Mean Corpuscular Hemoglobin 28.5 pg (28.0-34.0); Mean Platelet Volume 10.7 fL (7.4-10.4); Monocytes # 0.5 10^3/uL (0.2-0.9); Monocytes % 4.1 %; Neutrophils # 8.93 10^3/uL (1.8-7.7); Neutrophils % 72.6 %; Nucleated Red Blood Cells % 0 %; Platelet Count 377 10^3/cmm (130-400); Red Blood Count 5.34 10^6/uL (4.1-5.3); Red Cell Distribution Width 13.1 % (12.1-15.1); White Blood Count 12.3 10^3/uL (4.0-10.0)
[2020-02-20 20:30] LABS: Bilirubin Urine Neg (Negative); Blood Urine Neg (Negative); Glucose Urine UA Norm (Normal); Ketones Urine Negative (Negative); Leukocyte Esterase Urine Negative (Negative); Nitrate Urine Negative (Negative); Protein Urine Neg (Negative); Specific Gravity, Urine 1.025 (1.005-1.030); Urine Appearance Clear (CLEAR); Urine Color Yellow (Yellow); Urobilinogen Urine Norm (Negative); pH Urine 5 (5-7)
[2020-02-20 20:31] LABS: Add Urine Culture? No; Bacteria Urine 1+ /hpf; Mucus Urine TRACE /hpf; Squamous Epithelial Cell Urine 0-4 /hpf (0-5); WBC Urine 0-4 /hpf (0-5)
[2020-02-20 20:35] VITALS: BP 150/106; PULSE 88; RESP 18; O2SAT 96
[2020-02-20 20:42] LABS: HCG, Serum Qual Negative (Negative)
[2020-02-20 21:04] LABS: Alanine Aminotransferase 25 U/L (0-33); Albumin Level 4.5 g/dL (3.5-5.2); Alkaline Phosphatase 109 IU/L (35-105); Anion Gap 14.6 (5-19); Aspartate Amino Transferase 18 U/L (0-32); Blood Urea Nitrogen 16 mg/dL (6-20); Calcium 9.3 mg/dL (8.5-10.5); Carbon Dioxide 23 mmol/L (22-29); Chloride 103 mmol/L (98-107); Globulin 3.3 g/dL (1.3-4.6); Glomerular Filtration Rate 101.1 mL/min (90-130); Glucose 98 mg/dL (65-115); Lipase 51 U/L (13-60); Osmolality Calculated 285 mOsm/kg (285-295); Potassium 3.6 mmol/L (3.5-5.1); Sodium 137 mmol/L (136-145); Total Bilirubin 0.2 mg/dL (0.15-1.2); Total Protein 7.8 g/dL (6.6-8.7)
--- NOTE | 2020-02-20 21:40 | CTR_ITS ---
PROCEDURE INFORMATION: Exam: CT Abdomen Without Contrast Exam date and time: 02/20/2020 9:55 PM Age: 24 years old Clinical indication: Nausea and vomiting; Abdominal pain; Periumbilical; Prior surgery; Surgery type: Hyst, gb, appy; Additional info: N/v with abdom tenderness TECHNIQUE: Imaging protocol: Computed tomography images of the abdomen without contrast. Radiation optimization: All CT scans at this facility use at least one of these dose optimization techniques: automated exposure control; mA and/or kV adjustment per patient size (includes targeted exams where dose is matched to clinical indication); or iterative reconstruction. COMPARISON: CT abdomen pelvis w con* [id number] 08/26/2018 10:21 AM RADIATION DOSE METRICS: Total DLP (mGy-cm): 1421.27 FINDINGS: Lungs: Limited assessment of the lung bases fails to reveal evidence for active cardiopulmonary process. Evidence of antecedent granulomatous disease. Liver: Normal. No mass. Gallbladder and bile ducts: Status post cholecystectomy. Pancreas: Normal. No ductal dilation. Spleen: Normal. No splenomegaly. Adrenals: Normal. No mass. Kidneys and ureters: Very tiny nonobstructing calyceal nephrolithiasis foci equator left kidney under 2 mm. No hydronephrosis or perinephric fluid bilaterally. Right kidney unremarkable. Stomach and bowel: Visualized stomach and bowel are unremarkable. No obstruction. No mucosal thickening. Appendix: Status post appendectomy. Intraperitoneal space: Unremarkable. No free air. No significant fluid collection. Lymph nodes: No visible active mesenteric or retroperitoneal lymphadenopathy. Vasculature: Unremarkable. No abdominal aortic aneurysm. Bladder: Urinary bladder unremarkable. Reproductive: Status post hysterectomy. Bones/joints: No visible active osseous pathology. Soft tissues: Unremarkable. CT/CT abdomen con [id number] IMPRESSION: 1. Currently no visible evidence of acute abdominal or pelvic pathologic process. 2. Very tiny nonobstructing calyceal nephrolithiasis foci equator left kidney under 2 mm. No hydronephrosis or perinephric fluid bilaterally. Radiation Dose CTDIVOL = (mGy): DLP = 1421.27 (mGy-cm)
[2020-02-20] MEDS: metoclopramide 5 mg/mL SDV 2 mL 10 MG IVP (22:25)
[2020-02-20 22:50] VITALS: BP 138/74; PULSE 86; RESP 16; O2SAT 98
== END 2020-02-20 22:52 | disposition home or self-care (01) ==
PROVIDERS: Emergency Provider Physician Assistant; PCP Nurse Practitioner Family
DX: R11.2 Nausea with vomiting, unspecified (principal); R10.815 Periumbilic abdominal tenderness; Z77.22 Contact with and (suspected) exposure to environmental tobacco smoke (acute) (chronic)
CPT/HCPCS: 12345; 71045; 74150; 80053; 81001; 83690; 84703; 85025; 96361; 96374; 96375; 99283; J2405; J2765; J7030

== ENCOUNTER → 2020-03-01 08:05 | Outpatient (BNVA) | payer OTHER, SELFPAY | PROVIDERS: PCP Nurse Practitioner Family; Visit Provider Psychiatry & Neurology Psychiatry | DX: F43.10 Post-traumatic stress disorder, unspecified (principal); F33.1 Major depressive disorder, recurrent, moderate | CPT/HCPCS: 99214 ==

== ENCOUNTER 2020-03-31 11:36 | Outpatient (CLI) | payer OTHER, SELFPAY ==
[2020-04-02 07:13] LABS: Quest SARS-CoV-2 RNA DETECTED (NOT DETECTED)
--- NOTE | 2020-04-02 08:51 | PC.NURSE ---
notified pt of POSITIVE Covid results
== END 2020-03-31 11:37 | disposition home or self-care (01) ==
LOC: ER 11:37
PROVIDERS: PCP Nurse Practitioner Family; Visit Provider Emergency Medicine
DX: U07.1 COVID-19 (principal)
CPT/HCPCS: 87635

== ENCOUNTER 2020-04-04 12:28 | Emergency (ER) | payer OTHER, SELFPAY ==
[2020-04-04 12:47] VITALS: BP 134/97; PULSE 94; RESP 18; TEMP 36.6; O2SAT 96; BMI 39.4
[2020-04-04 12:51] VITALS: BP 134/97; PULSE 94; RESP 18; O2SAT 96
--- NOTE | 2020-04-04 13:32 | XR_ITS ---
WS: [id number] XR chest 1V portable [id number] REASON FOR EXAM: syncope FINDINGS: In comparison to the previous examination of 02/20/2020, there are some vague patchy lung opacities i n the right mid and right lower lung field that are not present on the previous examination. No other significant pulmonary parenchymal or pleural abnormalities are noted. The heart and mediastinum are within normal limits. The bony thorax is unremarkable. XR/XR chest 1V portable [id number] IMPRESSION: Subtle opacities in the right lung compared to previous examination as noted ab ove. These could be areas of mucous plugging and atelectasis however an acute p neumonitis is not excluded. Follow-up chest x-ray recommended.
--- NOTE | 2020-04-04 14:52 | PC.NURSE ---
1445- Rounded on pt, pt was in COVID [place] eating [employer]. Pt stated I was so hungry I couldn't wait I'm sorry . Pt then had c/o nausea to [employer].
--- NOTE | 2020-04-04 15:04 | ED_ITS ---
Documented by User: SHANE Dexter 04/05/20 07:11 HPI - COVID General: Chief Complaint: Nausea/Vomiting/Diarrhea Stated Complaint: COVID +, SYMPTOMS WORSENING Time Seen by Provider: 04/04/20 13:31 Source: patient Mode of arrival: ambulatory Limitations: no limitations Triage information: No fever, cough or shortness of breath . Exposure to COVID + person last 14 days History of Present Illness: HPI Narrative: 24-year-old pleasant female presents to the emergency department with vomiting diarrhea. She tested positive for Covid 19, 03/31/2020. She reports 2 episodes of vomiting today, continued diarrhea, several episodes today. She reports feels dehydrated. She is requesting IV fluid and something for nausea. She reports continued weakness, states feels like she is going to pass out. She reports nasal dryness, headache has resolved. Denies fever. She reports loss of taste and smell. MD complaint: known COVID positive Prior covid testing: yes, results known Prior testing date: 03/31/20 COVID 19 common symptoms: positive chills, fatigue, headache(s) (Now improved), loss of sense of smell and/or taste, nausea, vomiting and diarrhea; negative fever(s), non-productive cough, productive cough, dyspnea, body aches, throat pain or nasal congestion COVID 19 other sytmptoms: positive lethargy; negative chest pain Onset (ago): day(s) (5) Severity: moderate Treatment prior to arrival: acetaminophen and ibuprofen COVID Results: SARS-CoV-2 RNA (RT-PCR) Detected (NOT DETECTED) A 03/31/20 11:46 03/31/20 Nasal/Oral Coronavirus 2019 PCR Negative 01/10/20 16:57 01/10/20 Review of Systems General: Reports: 10 or more systems reviewed and unremarkable except in HPI and below Const: Reports: chills and fatigue; Denies: fever(s) or body aches Eyes: Denies: blurry vision or eye redness ENMT: Denies: throat pain, dental pain, dry mouth, disequilibrium, nasal discharge or nasal congestion Card: Denies: chest pain, palpitations, irregular heart rhythm, swelling of feet/ankles or dyspnea on exertion Resp: Denies: dyspnea, productive cough, non-productive cough or wheezing GI: Reports: nausea, vomiting and diarrhea; Denies: abdominal pain, dysphagia, bloating or GI cramping : Denies: difficulty voiding or dysuria Musc: Denies: neck pain, back pain, joint pain or joint warmth Skin/Breast: Denies: rash or pruritus Neuro: Reports: headache(s) (Now improved); Denies: numbness in extremities, difficulty walking or frequent falls Psych: Denies: anxiety or depression Shyam/Lymph: Denies: easy bruising PFSH ED PFSH: Medical History Asthma Endometriosis MDD (major depressive disorder) PTSD (post-traumatic stress disorder) Surgical History H/O hysterectomy for benign disease S/P appendectomy Status post laparoscopic cholecystectomy (~08/27/19) Social History Smoking and tobacco status: never smoked Second hand smoke exposure: Yes ( smokes occasionally) Alcohol intake: never Current gender identity: Female Physical Exam Const: COMMON NORMALS: no acute distress, patient oriented x3, healthy appearing and alert GENERAL APPEARANCE: cooperative, comfortable and well hydrated HENMT: COMMON NORMALS: normocephalic, Normal external nose present and moist oral mucous membranes HEAD & SCALP: normocephalic NOSE: Normal external nose present Eye: COMMON NORMALS: Equal, round and reactive pupils present and EOMs intact bilaterally GENERAL EYE: appearance normal, both eyes and all related structures PUPIL: Yes Equal, round and reactive pupils present Neck/C-Spine: COMMON NORMALS: full ROM and no lymphadenopathy GENERAL: Yes normal visual inspection and Yes trachea midline CERVICAL SPINE: Yes cervical ROM normal Lymph: LYMPHATIC: no lymphadenopathy noted Chest: COMMONS NORMALS: normal inspection of the chest and normal palpation of entire chest wall CHEST: No localized rib tenderness with anteroposterior compression Resp: COMMON NORMALS: normal respiratory effort and clear to auscultation bilaterally EFFORT & INSPECTION: Yes able to speak in complete sentences AUSCULTATION: clear to auscultation bilaterally Cardio: COMMON NORMALS: regular rhythm, S1 normal heart sound present, S2 normal heart sound present and Peripheral pulses 2+ throughout RHYTHM: regular rhythm HEART SOUNDS: S1 normal heart sound present and S2 normal heart sound present PERIPHERAL PULSES: Peripheral pulses 2+ throughout GI: COMMON NORMALS: Normal to inspection, nondistended, normoactive bowel sounds present, Soft to palpation and non-tender INSPECTION: Yes normal to inspection PALPATION: Yes Soft to palpation, No Hepatosplenomegaly present, No Splenomegaly present and No Rebound tenderness present : COMMON NORMALS: Yes no CVA tenderness BLADDER/KIDNEY EXAM: Yes no CVA t enderness Back/Pelvis: COMMON NORMALS: no CVA tenderness and thoracic and lumbar spine normal to inspection Extremity: COMMON NORMALS: normal to inspection and capillary refill normal Neuro: COMMON NORMALS: patient oriented x3 and no focal motor deficits SENSORIUM/ORIENTATION: Yes alert Psych: COMMON NORMALS: mental status grossly normal, Normal thought process present and cooperative ACTIVITY/MOTOR BEHAVIOR: Yes appropriate eye contact THOUGHT PROCESS: Normal thought process present Skin: COMMON NORMALS: no rashes or lesions noted and turgor normal GENERAL SKIN EXAM: no rashes or lesions noted and turgor normal Course Vital Signs: Vital signs: Vital Signs Temperature 97.8 F 04/04/20 12:47 Pulse Rate 94 04/04/20 18:19 Respiratory Rate 18 04/04/20 18:19 Blood Pressure 133/95 04/04/20 18:19 Pulse Oximetry 94 04/04/20 18:19 MDM - COVID Lab Data: Labs: Lab Results 04/04/20 04/04/20 04/04/20 Range/Units 17:14 17:14 17:14 WBC (4.0-10.0) 10^3/ uL RBC (4.1-5.3) 10^6/u L Hgb (11.5-15.3) g/dL Hct (37.0-47.0) % MCV (81-99) fL MCH (28.0-34.0) pg MCHC (30.0-36.0) g/dL RDW (12.1-15.1) % Plt Count (130-400) 10^3/c mm MPV (7.4-10.4) fL Neut % (Auto) % Lymph % (Auto) % [place] % (Auto) % Eos % (Auto) % Baso % (Auto) % Neut # (Auto) (1.8-7.7) 10^3/u L Lymph # (Auto) (0.8-4.8) 10^3/u L [place] # (Auto) (0.2-0.9) 10^3/u L Eos # (Auto) (0.0-0.8) 10^3/u L Baso # (Auto) (0.0-0.1) 10^3/u L Nucleated RBC % (a uto) % Nucleated RBCs # /100WBC ESR (0-15) mm/hr D-Dimer 0.43 (0-0.59) ug/mIFE U Sodium 139 (136-145) mmol/L Potassium 3.3 L (3.5-5.1) mmol/L Chloride 104 (98-107) mmol/L Carbon Dioxide 25 (22-29) mmol/L Anion Gap 13.3 (5-19) BUN 21 H (6-20) mg/dL Creatinine 0.6 (0.5-0.9) mg/dL GFR Calculation 120.8 (90-130) mL/min Glucose 106 (65-115) mg/dL Calculated Osmolal ity 291 (285-295) mOsm/k g Lactate 1.7 (0.5-2.2) mmol/L Calcium 9.1 (8.5-10.5) mg/dL Total Bilirubin 0.2 (0.15-1.2) mg/dL AST 30 (0-32) U/L ALT 81 H (0-33) U/L Alkaline Phosphata se 83 (35-105) IU/L C-Reactive Protein 3.0 (0.0-4.9) mg/L Total Protein 7.4 (6.6-8.7) g/dL Albumin 4.4 (3.5-5.2) g/dL Globulin 3.0 (1.3-4.6) g/dL 04/04/20 04/04/20 Range/Units 18:02 18:02 WBC 8.2 (4.0-10.0) 10^3/ uL RBC 5.04 (4.1-5.3) 10^6/u L Hgb 14.6 (11.5-15.3) g/dL Hct 43.6 (37.0-47.0) % MCV 86.5 (81-99) fL MCH 29.0 (28.0-34.0) pg MCHC 33.5 (30.0-36.0) g/dL RDW 13.3 (12.1-15.1) % Plt Count 278 (130-400) 10^3/c mm MPV 10.1 (7.4-10.4) fL Neut % (Auto) 67.9 % Lymph % (Auto) 23.3 % [place] % (Auto) 5.9 % Eos % (Auto) 0.2 % Baso % (Auto) 0.4 % Neut # (Auto) 5.54 (1.8-7.7) 10^3/u L Lymph # (Auto) 1.9 (0.8-4.8) 10^3/u L [place] # (Auto) 0.5 (0.2-0.9) 10^3/u L Eos # (Auto) 0.0 (0.0-0.8) 10^3/u L Baso # (Auto) 0.0 (0.0-0.1) 10^3/u L Nucleated RBC % (a uto) 0 % Nucleated RBCs # 0.0 /100WBC ESR 10 (0-15) mm/hr D-Dimer (0-0.59) ug/mIFE U Sodium (136-145) mmol/L Potassium (3.5-5.1) mmol/L Chloride (98-107) mmol/L Carbon Dioxide (22-29) mmol/L Anion Gap (5-19) BUN (6-20) mg/dL Creatinine (0.5-0.9) mg/dL GFR Calculation (90-130) mL/min Glucose (65-115) mg/dL Calculated Osmolal ity (285-295) mOsm/k g Lactate (0.5-2.2) mmol/L Calcium (8.5-10.5) mg/dL Total Bilirubin (0.15-1.2) mg/dL AST (0-32) U/L ALT (0-33) U/L Alkaline Phosphata se (35-105) IU/L C-Reactive Protein (0.0-4.9) mg/L Total Protein (6.6-8.7) g/dL Albumin (3.5-5.2) g/dL Globulin (1.3-4.6) g/dL Imaging Data: CXR: Radiologist's impression: [address] [address] XRay Report Signed Patient: Irish Bone #: [id number] : 1995Acct#:[id number] Age/Sex: 24 / FADM Date: 04/04/20 Loc: ERRoom/Bed: Attending Dr: Ordering Provider/Ordering MD: Dorota Archibald Date of Service: 04/04/20 Procedure(s): XR chest 1V portable [id number] Accession Number(s): [id number] Report Number: [id number] WS: [id number] XR chest 1V portable [id number] REASON FOR EXAM: syncope FINDINGS: In comparison to the previous examination of 02/20/2020, there are some vague patchy lung opacities in the right mid and right lower lung field that are not present on the previous examination. No other significant pulmonary parenchymal or pleural abnormalities are noted. The heart and mediastinum are within normal limits. The bony thorax is unremarkable. XR/XR chest 1V portable [id number] IMPRESSION: Subtle opacities in the right lung compared to previous examination as noted ab ove. These could be areas of mucous plugging and atelectasis however an acute pneumonitis is not excluded. Follow-up chest x-ray recommended. Dictated By:Felipe Sky Jr, MD Signed By:Felipe Sky Jr MDSigned Date/Time:04/04/201408 DD/ 140 COVID Results: SARS-CoV-2 RNA (RT-PCR) Detected (NOT DETECTED) A 03/31/20 11:46 03/31/20 Nasal/Oral Coronavirus 2019 PCR Negative 01/10/20 16:57 01/10/20 Discharge Plan Discharge Patient Disposition: Home Clinical Impression: COVID-19 virus detected Pneumonia Qualifiers: Pneumonia type: due to unspecified organism Laterality: right Lung location: lower lobe of lung Qualified Code(s): J18.9 - Pneumonia, unspecified organism Condition: Stable Prescriptions: New levofloxacin 750 mg tablet 750 mg PO DAILY 5 Days Qty: 5 RF: 0 fluconazole 150 mg tablet 150 mg PO DAILY Qty: 1 RF: 0 albuterol sulfate 2.5 mg /3 mL (0.083 %) solution for nebulization 2.5 mg inhalation Q4H PRN (Reason: shortness of breath or wheezing) Qty: 15 RF: 0 No Action venlafaxine 75 mg capsule,extended release 24hr 225 mg PO DAILY 30 Days Qty: 90 RF: 3 zolpidem 5 mg tablet 5 mg PO .qhs 30 Days Qty: 30 RF: 3 estradiol 1 mg tablet 1 mg PO DAILY RF: 0 montelukast 10 mg tablet 10 mg PO DAILY RF: 0 Ventolin HFA 90 mcg/actuation HFA aerosol inhaler See Rx Instructions .ROUTE .COMPLEX RF: 0 Discharge Orders: Discharge Order (Routine); Ordered 04/04/20 Ordered By: Roman Hopper Referrals: Adri Bucio APN [Primary Care Provider] - Discharge Diet: Regular Discharge Activity: Increase activity as tolerated Patient Instructions: Viral Syndrome (ED), Pneumonia (ED) Activity Restrictions/Additional Instructions: Follow-up with medical provider as directed in 7-10 days. Self quarantine for 14 days. Take full course of antibiotics as prescribed. take ibuprofen or Tylenol for fevers. Drink plenty of fluids and stay hydrated. Symptom management with [id number] cough and nasal decongestant meds. Return to the ER or your medical provider if condition worsens. Please read and understand discharge instructions. If any questions, please ask. Sign Out Sign Out Data: Patient Sign Out occurred on 04/04/20 at 17:56. Patient's care was discussed, and care was transferred from SHANE Dexter to LOGAN Arzola. Sign Out Comment: transfer of care due to shift change, serology testing pending Last updated by Dorota Archibald ARNP at 04/04/20 17:51 Coding Level of Care Code ED Industrial Safety And Health Manager for Chg Fwd Exam Comprehensive Documented by User: LOGAN Arzola 04/05/20 03:05 HPI - COVID General: Chief Complaint: Nausea/Vomiting/Diarrhea Stated Complaint: COVID +, SYMPTOMS WORSENING Time Seen by Provider: 04/04/20 13:31 COVID Results: SARS-CoV-2 RNA (RT-PCR) Detected (NOT DETECTED) A 03/31/20 11:46 03/31/20 Nasal/Oral Coronavirus 2019 PCR Negative 01/10/20 16:57 01/10/20 [facility] ED PFS: Medical History Asthma Endometriosis MDD (major depressive disorder) PTSD (post-traumatic stress disorder) Surgical History H/O hysterectomy for benign disease S/P appendectomy Status post laparoscopic cholecystectomy (~08/27/19) Social History Smoking and tobacco status: never smoked Second hand smoke exposure: Yes ( smokes occasionally) Alcohol intake: never Current gender identity: Female Course Vital Signs: Vital signs: Vital Signs Temperature 97.8 F 04/04/20 12:47 Pulse Rate 94 04/04/20 18:19 Respiratory Rate 18 04/04/20 18:19 Blood Pressure 133/95 04/04/20 18:19 Pulse Oximetry 94 04/04/20 18:19 MDM - COVID MDM Narrative: Medical decision making narrative: Patient is a 24-year-old female comes to the ED with vomiting and diarrhea. Patient tested positive for COVID-19 on March 31. She just finished taking Z-Adriel and Medrol Dosepak. CBC and CMP were unremarkable. D-dimer 0.43 and lactate was 1.7. Chest x-ray showed some lung infiltrates on right lower lobe. Patient was given IV fluids and Zofran while here in the ED and her symptoms improved. Patient was discharged and sent home with a prescription for albuterol nebulizer and Levaquin. She was told to continue self quarantine as directed. Return to ED precautions. Follow-up with PCP in 7 to 10 days. Patient understood and agreed with plan. Lab Data: Labs: Lab Results 04/04/20 04/04/20 04/04/20 Range/Units 17:14 17:14 17:14 WBC (4.0-10.0) 10^3/ uL RBC (4.1-5.3) 10^6/u L Hgb (11.5-15.3) g/dL Hct (37.0-47.0) % MCV (81-99) fL MCH (28.0-34.0) pg MCHC (30.0-36.0) g/dL RDW (12.1-15.1) % Plt Count (130-400) 10^3/c mm MPV (7.4-10.4) fL Neut % (Auto) % Lymph % (Auto) % [place] % (Auto) % Eos % (Auto) % Baso % (Auto) % Neut # (Auto) (1.8-7.7) 10^3/u L Lymph # (Auto) (0.8-4.8) 10^3/u L [place] # (Auto) (0.2-0.9) 10^3/u L Eos # (Auto) (0.0-0.8) 10^3/u L Baso # (Auto) (0.0-0.1) 10^3/u L Nucleated RBC % (a uto) % Nucleated RBCs # /100WBC ESR (0-15) mm/hr D-Dimer 0.43 (0-0.59) ug/mIFE U Sodium 139 (136-145) mmol/L Potassium 3.3 L (3.5-5.1) mmol/L Chloride 104 (98-107) mmol/L Carbon Dioxide 25 (22-29) mmol/L Anion Gap 13.3 (5-19) BUN 21 H (6-20) mg/dL Creatinine 0.6 (0.5-0.9) mg/dL GFR Calculation 120.8 (90-130) mL/min Glucose 106 (65-115) mg/dL Calculated Osmolal ity 291 (285-295) mOsm/k g Lactate 1.7 (0.5-2.2) mmol/L Calcium 9.1 (8.5-10.5) mg/dL Total Bilirubin 0.2 (0.15-1.2) mg/dL AST 30 (0-32) U/L ALT 81 H (0-33) U/L Alkaline Phosphata se 83 (35-105) IU/L C-Reactive Protein 3.0 (0.0-4.9) mg/L Total Protein 7.4 (6.6-8.7) g/dL Albumin 4.4 (3.5-5.2) g/dL Globulin 3.0 (1.3-4.6) g/dL 04/04/20 04/04/20 Range/Units 18:02 18:02 WBC 8.2 (4.0-10.0) 10^3/ uL RBC 5.04 (4.1-5.3) 10^6/u L Hgb 14.6 (11.5-15.3) g/dL Hct 43.6 (37.0-47.0) % MCV 86.5 (81-99) fL MCH 29.0 (28.0-34.0) pg MCHC 33.5 (30.0-36.0) g/dL RDW 13.3 (12.1-15.1) % Plt Count 278 (130-400) 10^3/c mm MPV 10.1 (7.4-10.4) fL Neut % (Auto) 67.9 % Lymph % (Auto) 23.3 % [place] % (Auto) 5.9 % Eos % (Auto) 0.2 % Baso % (Auto) 0.4 % Neut # (Auto) 5.54 (1.8-7.7) 10^3/u L Lymph # (Auto) 1.9 (0.8-4.8) 10^3/u L [place] # (Auto) 0.5 (0.2-0.9) 10^3/u L Eos # (Auto) 0.0 (0.0-0.8) 10^3/u L Baso # (Auto) 0.0 (0.0-0.1) 10^3/u L Nucleated RBC % (a uto) 0 % Nucleated RBCs # 0.0 /100WBC ESR 10 (0-15) mm/hr D-Dimer (0-0.59) ug/mIFE U Sodium (136-145) mmol/L Potassium (3.5-5.1) mmol/L Chloride (98-107) mmol/L Carbon Dioxide (22-29) mmol/L Anion Gap (5-19) BUN (6-20) mg/dL Creatinine (0.5-0.9) mg/dL GFR Calculation (90-130) mL/min Glucose (65-115) mg/dL Calculated Osmolal ity (285-295) mOsm/k g Lactate (0.5-2.2) mmol/L Calcium (8.5-10.5) mg/dL Total Bilirubin (0.15-1.2) mg/dL AST (0-32) U/L ALT (0-33) U/L Alkaline Phosphata se (35-105) IU/L C-Reactive Protein (0.0-4.9) mg/L Total Protein (6.6-8.7) g/dL Albumin (3.5-5.2) g/dL Globulin (1.3-4.6) g/dL COVID Results: SARS-CoV-2 RNA (RT-PCR) Detected (NOT DETECTED) A 03/31/20 11:46 03/31/20 Nasal/Oral Coronavirus 2019 PCR Negative 01/10/20 16:57 01/10/20 Discharge Plan Discharge Patient Disposition: Home Clinical Impression: COVID-19 virus detected Pneumonia Qualifiers: Pneumonia type: due to unspecified organism Laterality: right Lung location: lower lobe of lung Qualified Code(s): J18.9 - Pneumonia, unspecified organism Condition: Stable Prescriptions: New levofloxacin 750 mg tablet 750 mg PO DAILY 5 Days Qty: 5 RF: 0 fluconazole 150 mg tablet 150 mg PO DAILY Qty: 1 RF: 0 albuterol sulfate 2.5 mg /3 mL (0.083 %) solution for nebulization 2.5 mg inhalation Q4H PRN (Reason: shortness of breath or wheezing) Qty: 15 RF: 0 No Action venlafaxine 75 mg capsule,extended release 24hr 225 mg PO DAILY 30 Days Qty: 90 RF: 3 zolpidem 5 mg tablet 5 mg PO .qhs 30 Days Qty: 30 RF: 3 estradiol 1 mg tablet 1 mg PO DAILY RF: 0 montelukast 10 mg tablet 10 mg PO DAILY RF: 0 Ventolin HFA 90 mcg/actuation HFA aerosol inhaler See Rx Instructions .ROUTE .COMPLEX RF: 0 Discharge Orders: Discharge Order (Routine); Ordered 04/04/20 Ordered By: Roman Hopper Referrals: Adri Bucio APN [Primary Care Provider] - Discharge Diet: Regular Discharge Activity: Increase activity as tolerated Patient Instructions: Viral Syndrome (ED), Pneumonia (ED) Activity Restrictions/Additional Instructions: Follow-up with medical provider as directed in 7-10 days. Self quarantine for 14 days. Take full course of antibiotics as prescribed. take ibuprofen or Tylenol for fevers. Drink plenty of fluids and stay hydrated. Symptom management with [id number] cough and nasal decongestant meds. Return to the ER or your medical provider if condition worsens. Please read and understand discharge instructions. If any questions, please ask. Sign Out Sign Out Data: Patient Sign Out occurred on 04/04/20 at 17:56. Patient's care was discussed, and care was transferred from SHANE Dexter to LOGAN Arzola. Sign Out Comment: transfer of care due to shift change, serology testing pending Last updated by Dorota Archibald ARNP at 04/04/20 17:51 Coding Level of Care Code ED Industrial Safety And Health Manager for Chg Fwd Exam Comprehensive
[2020-04-04 17:00] VITALS: BP 130/99; PULSE 109; RESP 20; O2SAT 95
[2020-04-04] MEDS: ondansetron 2 mg/ML SDV 2 mL 4 MG IVP (17:29)
[2020-04-04] MEDS: sodium chloride 0.9% 1,000 ML 999 ML IV (17:30)
[2020-04-04 17:43] LABS: D Dimer 0.43 ug/mIFEU (0-0.59)
[2020-04-04 17:44] LABS: Lactate (Lactic Acid level) 1.7 mmol/L (0.5-2.2)
[2020-04-04 17:45] LABS: Alanine Aminotransferase 81 U/L (0-33); Albumin Level 4.4 g/dL (3.5-5.2); Alkaline Phosphatase 83 IU/L (35-105); Anion Gap 13.3 (5-19); Aspartate Amino Transferase 30 U/L (0-32); Blood Urea Nitrogen 21 mg/dL (6-20); Calcium 9.1 mg/dL (8.5-10.5); Carbon Dioxide 25 mmol/L (22-29); Chloride 104 mmol/L (98-107); Glomerular Filtration Rate 120.8 mL/min (90-130); Glucose 106 mg/dL (65-115); Osmolality Calculated 291 mOsm/kg (285-295); Potassium 3.3 mmol/L (3.5-5.1); Sodium 139 mmol/L (136-145); Total Bilirubin 0.2 mg/dL (0.15-1.2); Total Protein 7.4 g/dL (6.6-8.7)
[2020-04-04 18:09] LABS: Basophils % 0.4 %; Eosinophils % 0.2 %; Hematocrit 43.6 % (37.0-47.0); Hemoglobin 14.6 g/dL (11.5-15.3); Lymphocytes # 1.9 10^3/uL (0.8-4.8); Lymphocytes % 23.3 %; Mean Corpuscular HGB Conc 33.5 g/dL (30.0-36.0); Mean Corpuscular Volume 86.5 fL (81-99); Mean Platelet Volume 10.1 fL (7.4-10.4); Monocytes # 0.5 10^3/uL (0.2-0.9); Monocytes % 5.9 %; Neutrophils # 5.54 10^3/uL (1.8-7.7); Neutrophils % 67.9 %; Nucleated Red Blood Cells % 0 %; Platelet Count 278 10^3/cmm (130-400); Red Blood Count 5.04 10^6/uL (4.1-5.3); Red Cell Distribution Width 13.3 % (12.1-15.1); White Blood Count 8.2 10^3/uL (4.0-10.0)
[2020-04-04 18:19] VITALS: BP 133/95; PULSE 94; RESP 18; O2SAT 94
[2020-04-04 18:56] LABS: Erythrocyte Sedimentation Rate 10 mm/hr (0-15)
[2020-04-04] MEDS: levoFLOXacin 750 mg Tablet PO (19:33)
== END 2020-04-04 19:37 | disposition home or self-care (01) ==
PROVIDERS: Nurse Practitioner Family; Emergency Provider Physician Assistant; PCP Nurse Practitioner Family
DX: U07.1 COVID-19 (principal); J12.89 Other viral pneumonia
CPT/HCPCS: 12345; 71045; 80053; 83605; 85025; 85378; 85651; 86140; 96361; 96374; 96375; 96376; 99282; 99283; J2405; J7040

== ENCOUNTER → 2020-07-05 08:39 | Outpatient (BNVA) | payer OTHER, SELFPAY | PROVIDERS: PCP Nurse Practitioner Family; Visit Provider Psychiatry & Neurology Psychiatry | DX: F33.1 Major depressive disorder, recurrent, moderate (principal); F43.10 Post-traumatic stress disorder, unspecified | CPT/HCPCS: 99214 ==

== ENCOUNTER → 2020-08-31 07:39 | Outpatient (BNVA) | payer OTHER, SELFPAY | PROVIDERS: PCP Nurse Practitioner Family; Visit Provider Psychiatry & Neurology Psychiatry | DX: F33.1 Major depressive disorder, recurrent, moderate (principal); F43.10 Post-traumatic stress disorder, unspecified | CPT/HCPCS: 99214 ==

== ENCOUNTER → 2021-01-04 11:32 | Outpatient (BNVA) | payer SELFPAY | PROVIDERS: PCP Nurse Practitioner Family; Visit Provider Nurse Practitioner Family | DX: Z20.822 Contact with and (suspected) exposure to COVID-19 (principal); Z20.828 Contact with and (suspected) exposure to other viral communicable diseases; J06.9 Acute upper respiratory infection, unspecified | CPT/HCPCS: 87426 ==

== ENCOUNTER 2021-11-11 15:58 | Emergency (ER) | payer OTHER, SELFPAY ==
[2021-11-11 16:05] VITALS: BP 157/105; PULSE 100; RESP 16; TEMP 36.4; O2SAT 98; BMI 42.9
--- NOTE | 2021-11-11 16:10 | ED_ITS ---
HPI - Nausea/Vomiting/Diarrhea General: Chief complaint: Nausea/Vomiting/Diarrhea Stated complaint: n/v/d Time Seen by Provider: 11/11/21 16:07 History of Present Illness: Ms. Bone is a 26-year-old lady with history of endometriosis and multiple bowel abdominal surgeries who presents to the emergency department due to abdominal pain with nausea, vomiting, diarrhea. Onset of symptoms was a few days ago. Earlier last week she did change doses of semaglutide for which she follows with her primary care for weight loss. She initially was doing okay however after eating [place] food had multiple episodes of emesis. She reports mostly feeling that food gets stuck and comes up undigested. She denies blood in stool or vomit. She has had watery diarrhea and generalized abdominal discomfort. She has tried home medications without significant relief. No other specific changes in health, exacerbating, or alleviating factors identified. Onset (ago): day(s) Description of vomiting: food contents Description of diarrhea: watery Associated nausea: Yes Associated abdominal pain: Yes Location of pain: Diffuse Severity: moderate Exacerbating factors: eating and vomiting Associated symtoms: Reports nausea Review of Systems General: Reports: 10 or more systems reviewed and unremarkable except in HPI and below GI: Reports: nausea PFSH ED PFSH: Medical History Asthma Endometriosis MDD (major depressive disorder) PTSD (post-traumatic stress disorder) Surgical History H/O hysterectomy for benign disease S/P appendectomy Status post laparoscopic cholecystectomy (~08/27/19) Social History Smoking and tobacco status: never smoked Second hand smoke exposure: Yes ( smokes occasionally) Alcohol intake: never Current gender identity: Female Female Reproductive History: Date of last menstrual period: 05/11/17 Physical Exam Const: COMMON NORMALS: alert GENERAL APPEARANCE: cooperative and well developed HENMT: COMMON NORMALS: normocephalic and atraumatic HEAD & SCALP: no rmocephalic and atraumatic Eye: COMMON NORMALS: conjunctivae normal CONJUNCTIVA: Yes conjunctivae normal SCLERA: sclerae normal Neck/C-Spine: COMMON NORMALS: supple GENERAL: Yes trachea midline Resp: COMMON NORMALS: normal respiratory effort and clear to auscultation bilaterally EFFORT & INSPECTION: Yes able to speak in complete sentences AUSCULTATION: clear to auscultation bilaterally Cardio: COMMON NORMALS: regular rate and regular rhythm RATE: regular rate RHYTHM: regular rhythm GI: COMMON NORMALS: Soft to palpation PALPATION: Yes Soft to palpation, Yes Tenderness to palpation present (GI), No Guarding due to palpation present (GI) and No Rigid due to palpation PERCUSSION: normal to percussion Extremity: GENERAL: Yes normal exam except as noted and No edema Neuro: COMMON NORMALS: moves all extremities SENSORIUM/ORIENTATION: Yes alert and No Orientation impaired Psych: COMMON NORMALS: mental status grossly normal and Normal thought process present THOUGHT PROCESS: Normal thought process present Course ED course: - Patient was seen and evaluated by me at bedside - Patient placed on cardiac monitors, IV access obtained - Initial evaluation notable for exam as above. - Labs personally interpreted by me -Symptom treatment ordered - Labs notable for mild leukocytosis, normal hemoglobin. No significant electrolyte derangement. Urinalysis not concerning for urinary tract infection. -On reassessment only mild improvement in discomfort. Discussed risks of imaging. Patient wishes to proceed. - Imaging notable for no acute pathology identified. - Upon serial reexamination after treatment the patient was improved with additional treatment - Based on patient history, evaluation, and testing as interpreted the most likely cause of the patient's condition is nausea, vomiting, diarrhea and abdominal pain of unclear etiology, possibly related to medication change. - The results of ED evaluation were discussed with the patient including prescriptions and/or symptomatic cares (if applicable) including appropriate and responsible use, followup plan, and return precautions. The patient verbalized understanding and felt safe for discharge. - Patient discharged in satisfactory condition. Note: Click bubbles or prepopulated suazo in note writing are used for assistance with data collection and billing and are inherently more limited than narrative and other text portions of this note. Please use narrative for additional clinical history and defer to narrative/free test for any case of contradictory information. If information appears in only free text or click bubble it should be considered present or absent as reported. Please contact note keno writer/runner for clarifications of clinical information or contradictory information. MDM is a brief summary, contradictory or erroneous seeming information should be clarified and full note should be reviewed. Vital Signs: Vital signs: Vital Signs Temperature 97.6 F 11/11/21 16:05 Pulse Rate 100 11/11/21 16:05 Respiratory Rate 16 11/11/21 16:05 Blood Pressure 157/105 11/11/21 16:05 Pulse Oximetry 98 11/11/21 16:05 MDM - Nausea/Vomiting/Diarrhea Medical Decision Making 26-year-old lady presenting with nausea, vomiting, diarrhea, and abdominal pain. Patient does have recent medication change which may contribute to symptoms. ED evaluation with mild leukocytosis. Negative CT scan. Satisfactory for outpatient management with improvement in symptoms. Medical Records I reviewed the patient's medical records. Lab Data I reviewed the patient's lab results. : 11/11/21 16:45 11/11/21 16:45 Radiology Impressions Abdomen/Pelvis CT 11/11/21 17:41 IMPRESSION: No acute findings. Laboratory Results WBC 10.8 10^3/uL (4.0-10.0) H 11/11/21 16:45 RBC 5.07 10^6/uL (4.1-5.3) 11/11/21 16:45 Hgb 14.9 g/dL (11.5-15.3) 11/11/21 16:45 Hct 42.5 % (37.0-47.0) 11/11/21 16:45 MCV 83.8 fl (81-99) 11/11/21 16:45 MCH 29.4 pg (28.0-34.0) 11/11/21 16:45 MCHC 35.1 g/dL (30.0-36.0) 11/11/21 16:45 RDW 12.9 % (12.1-15.1) 11/11/21 16:45 Plt Count 380 10^3/cmm (130-400) 11/11/21 16:45 MPV 10.8 fL (7.4-10.4) H 11/11/21 16:45 Neut % (Auto) 63.5 % 11/11/21 16:45 Lymph % (Auto) 24.9 % 11/11/21 16:45 [place] % (Auto) 5.3 % 11/11/21 16:45 Eos % (Auto) 5.3 % 11/11/21 16:45 Baso % (Auto) 0.3 % 11/11/21 16:45 Neut # (Auto) 6.82 10^3/uL (1.8-7.7) 11/11/21 16:45 Lymph # (Auto) 2.7 10^3/uL (0.8-4.8) 11/11/21 16:45 [place] # (Auto) 0.6 10^3/uL (0.2-0.9) 11/11/21 16:45 Eos # (Auto) 0.6 10^3/uL (0.0-0.8) 11/11/21 16:45 Baso # (Auto) 0.0 10^3/uL (0.0-0.1) 11/11/21 16:45 Nucleated RBC % (auto) 0 % 11/11/21 16:45 Nucleated RBCs # 0.0 /100WBC 11/11/21 16:45 Sodium 138 mmol/L (136-145) 11/11/21 16:45 Potassium 4.0 mmol/L (3.5-5.1) 11/11/21 16:45 Chloride 103 mmol/L (98-107) 11/11/21 16:45 Carbon Dioxide 24 mmol/L (22-29) 11/11/21 16:45 Anion Gap 15.0 (5-19) 11/11/21 16:45 BUN 14 mg/dL (6-20) 11/11/21 16:45 Creatinine 0.8 mg/dL (0.5-0.9) 11/11/21 16:45 GFR Calculation 85.4 mL/min (90-130) L 11/11/21 16:45 Glucose 99 mg/dL (65-115) 11/11/21 16:45 Calculated Osmolality 287 mOsm/kg (285-295) 11/11/21 16:45 Lactate 0.9 mmol/L (0.5-2.2) 11/11/21 16:45 Calcium 9.2 mg/dL (8.5-10.5) 11/11/21 16:45 Magnesium 1.8 mg/dL (1.7-2.3) 11/11/21 16:45 Total Bilirubin 0.4 mg/dL (0.15-1.2) 11/11/21 16:45 AST 20 U/L (0-32) 11/11/21 16:45 ALT 29 U/L (0-33) 11/11/21 16:45 Alkaline Phosphatase 90 IU/L (35-105) 11/11/21 16:45 Total Protein 7.7 g/dL (6.6-8.7) 11/11/21 16:45 Albumin 4.4 g/dL (3.5-5.2) 11/11/21 16:45 Globulin 3.3 g/dL (1.3-4.6) 11/11/21 16:45 Lipase 45 U/L (13-60) 11/11/21 16:45 HCG, Qual Negative (Negative) 11/11/21 16:42 Urine Color Yellow (Yellow) 11/11/21 16:42 Urine Appearance Sl hazy (CLEAR) 11/11/21 16:42 Urine pH 5 (5-7) 11/11/21 16:42 Ur Specific [place] 1.025 (1.005-1.030) 11/11/21 16:42 Urine Protein Neg (Negative) 11/11/21 16:42 Urine Glucose (UA) Norm (Normal) 11/11/21 16:42 Urine Ketones Negative (Negative) 11/11/21 16:42 Urine Blood Trace (Negative) H 11/11/21 16:42 Urine Nitrate Negative (Negative) 11/11/21 16:42 Urine Bilirubin Neg (Negative) 11/11/21 16:42 Urine Urobilinogen Norm mg/dL (Negative) 11/11/21 16:42 Ur Leukocyte Esterase Negative (Negative) 11/11/21 16:42 Urine RBC 0-4 /hpf (0-2) H 11/11/21 16:42 Urine WBC None /hpf (0-5) 11/11/21 16:42 Ur Squamous Epith Cells 0-4 /hpf (0-5) H 11/11/21 16:42 Amorphous Sediment Not Reportable 11/11/21 16:42 Urine Bacteria Trace /hpf (NONE) 11/11/21 16:42 Discharge Plan Discharge Patient Disposition: Home Clinical Impression: Abdominal pain, Nausea vomiting and diarrhea, Hematuria Condition: Stable Prescriptions: No Action estradiol 1 mg tablet 1 mg PO DAILY 0RF Rx Instructions: off 1 week; repeat cycle Ozempic 0.25 mg or 0.5 mg(2 mg/1.5 mL) pen injector 1 mg SUBCUT .Weekly Qty: 3 2RF Rx Instructions: 340B venlafaxine 75 mg capsule,extended release 24hr 225 mg PO DAILY 30 Days Qty: 90 6RF montelukast 10 mg tablet 10 mg PO DAILY 0RF Ventolin HFA 90 mcg/actuation HFA aerosol inhaler See Rx Instructions .ROUTE .COMPLEX 0RF Rx Instructions: inhaled use as directed albuterol sulfate 2.5 mg /3 mL (0.083 %) solution for nebulization 2.5 mg inhalation Q4H PRN (Reason: shortness of breath or wheezing) Qty: 15 0RF Discharge Orders: Discharge ED (Routine); Ordered 11/11/21 Ordered By: Nick Cevallos Referrals: Indy Sandoval FNP-C [Primary Care Provider] - Discharge Diet: Advance as tolerated and Clear Liquid Discharge Activity: Increase activity as tolerated Patient Instructions: Acute Nausea and Vomiting (ED), Hematuria (ED), Abdominal Pain (ED) Activity Restrictions/Additional Instructions: Thank you for visiting the emergency department. You were seen and evaluated for abdominal pain, nausea, vomiting. The exact cause of your symptoms is unclear. It is possible that this is a side effect of medication however it is also very possible that it is unrelated. I recommend follow-up with your primary care provider. I will write a prescription for Reglan, do not take this at the same time as Zofran or other antinausea medications. Please return to the emergency department for inability tolerate p.o. intake, uncontrolled pain, or anything you are concerned about and feel needs ED evaluation. Coding Level of Care Code ED Publications Editor for [facility] Lowry Exam Comprehensive
[2021-11-11] MEDS: lactated ringers 1,000 ML 999 ML IV (16:43)
[2021-11-11] MEDS: metoclopramide 5 mg/mL SDV 2 mL 10 MG IVP (16:44)
--- NOTE | 2021-11-11 16:52 | PC.NURSE ---
Reglan was administered IVP by AMANDA Arevalo
[2021-11-11] MEDS: ketorolac 30 mg/mL INJ 15 MG IVP (17:04)
[2021-11-11 17:12] LABS: Basophils % 0.3 %; Eosinophils # 0.6 10^3/uL (0.0-0.8); Eosinophils % 5.3 %; Hematocrit 42.5 % (37.0-47.0); Hemoglobin 14.9 g/dL (11.5-15.3); Lymphocytes # 2.7 10^3/uL (0.8-4.8); Lymphocytes % 24.9 %; Mean Corpuscular HGB Conc 35.1 g/dL (30.0-36.0); Mean Corpuscular Hemoglobin 29.4 pg (28.0-34.0); Mean Corpuscular Volume 83.8 fl (81-99); Mean Platelet Volume 10.8 fL (7.4-10.4); Monocytes # 0.6 10^3/uL (0.2-0.9); Monocytes % 5.3 %; Neutrophils # 6.82 10^3/uL (1.8-7.7); Neutrophils % 63.5 %; Nucleated Red Blood Cells % 0 %; Platelet Count 380 10^3/cmm (130-400); Red Blood Count 5.07 10^6/uL (4.1-5.3); Red Cell Distribution Width 12.9 % (12.1-15.1); White Blood Count 10.8 10^3/uL (4.0-10.0)
[2021-11-11 17:15] LABS: HCG Qualitative Urine. Negative (Negative)
[2021-11-11 17:23] LABS: Add Urine Microscopic? YES; Bilirubin Urine Neg (Negative); Blood Urine Trace (Negative); Glucose Urine UA Norm (Normal); Ketones Urine Negative (Negative); Leukocyte Esterase Urine Negative (Negative); Nitrate Urine Negative (Negative); Protein Urine Neg (Negative); RBC Urine 0-4 /hpf (0-2); Specific Gravity, Urine 1.025 (1.005-1.030); Squamous Epithelial Cell Urine 0-4 /hpf (0-5); Urine Appearance SL Hazy (CLEAR); Urine Color Yellow (Yellow); Urobilinogen Urine Norm (Negative); pH Urine 5 (5-7)
[2021-11-11 17:24] LABS: Add Urine Culture? No; Bacteria Urine TRACE /hpf
[2021-11-11 17:31] LABS: Alanine Aminotransferase 29 U/L (0-33); Albumin Level 4.4 g/dL (3.5-5.2); Alkaline Phosphatase 90 IU/L (35-105); Aspartate Amino Transferase 20 U/L (0-32); Blood Urea Nitrogen 14 mg/dL (6-20); Calcium 9.2 mg/dL (8.5-10.5); Carbon Dioxide 24 mmol/L (22-29); Chloride 103 mmol/L (98-107); Globulin 3.3 g/dL (1.3-4.6); Glomerular Filtration Rate 85.4 mL/min (90-130); Glucose 99 mg/dL (65-115); Lactate (Lactic Acid level) 0.9 mmol/L (0.5-2.2); Lipase 45 U/L (13-60); Magnesium 1.8 mg/dL (1.7-2.3); Osmolality Calculated 287 mOsm/kg (285-295); Sodium 138 mmol/L (136-145); Total Bilirubin 0.4 mg/dL (0.15-1.2); Total Protein 7.7 g/dL (6.6-8.7)
--- NOTE | 2021-11-11 17:41 | CTR_ITS ---
INFORMATION: Exam: CT Abdomen And Pelvis With Contrast Exam date and time: 11/11/2021 6:10 PM Age: 26 years old Clinical indication: Abdominal pain; Prior surgery; Surgery date: 6+ months; Surgery type: Appx, hyst, jarrett; Additional info: Periumbilical pain. Abd pain, generalized, n/v/d, HX multiple surgeries TECHNIQUE: Imaging protocol: Computed tomography of the abdomen and pelvis with contrast. Radiation optimization: All CT scans at this facility use at least one of these dose optimization techniques: automated exposure control; mA and/or kV adjustment per patient size (includes targeted exams where dose is matched to clinical indication); or iterative reconstruction. Contrast material: OMNIPAQUE 350; Contrast volume: 90 ml; Contrast route: INTRAVENOUS (IV); COMPARISON: CT abdomen wo con [id number] 02/20/2020 10:04 PM RADIATION DOSE METRICS: Total DLP (mGy-cm): 1963.69 FINDINGS: Liver: Normal. No mass. Gallbladder and bile ducts: Cholecystectomy. No ductal dilation. Pancreas: Normal. No ductal dilation. Spleen: Normal. No splenomegaly. Adrenal glands: Normal. No mass. Kidneys and ureters: Normal. No hydronephrosis. Stomach and bowel: Unremarkable. No obstruction. No mucosal thickening. Appendix: Appendectomy. Intraperitoneal space: Unremarkable. No free air. No significant fluid collection. Vasculature: Unremarkable. No abdominal aortic aneurysm. Lymph nodes: Unremarkable. No enlarged lymph nodes. Urinary bladder: Unremarkable as visualized. Reproductive: Hysterectomy. Bones/joints: No acute fracture. Soft tissues: Unremarkable. CT/CT abdomen pelvis w con* [id number] IMPRESSION: No acute findings.
[2021-11-11] MEDS: iohexol 300 mg/mL 100 mL Btl IV (18:00)
== END 2021-11-11 19:22 | disposition home or self-care (01) ==
PROVIDERS: Emergency Provider Emergency Medicine; PCP Nurse Practitioner Family
DX: R10.9 Unspecified abdominal pain (principal); R31.9 Hematuria, unspecified; R11.2 Nausea with vomiting, unspecified; R19.7 Diarrhea, unspecified; Z77.22 Contact with and (suspected) exposure to environmental tobacco smoke (acute) (chronic)
CPT/HCPCS: 74177; 80053; 81001; 81025; 83605; 83690; 83735; 85025; 96374; 96375; 99284; J1885; J2765; Q9967

== ENCOUNTER → 2022-05-10 12:12 | Outpatient (BNVA) | payer OTHER, SELFPAY | PROVIDERS: PCP Nurse Practitioner Family; Visit Provider Emergency Medicine | DX: Z20.822 Contact with and (suspected) exposure to COVID-19 (principal); Z20.818 Contact with and (suspected) exposure to other bacterial communicable diseases | CPT/HCPCS: 87071; 87426; 87880 ==

== ENCOUNTER 2023-03-09 14:56 | Outpatient (CLI) | payer OTHER, SELFPAY ==
[2023-03-10 16:28] LABS: Acacia (T9) Class 0; Acacia (T9) IgE <0.10 kU/L; Alternaria Alternata (M6) Ige <0.10 kU/L; Alternaria Class 0; Aspergillus fumigatus <0.10 kU/L; Aspergillus fumigatus Class 0; Bermuda Class 2; Bermuda Grass (G2) Ige 0.88 kU/L; Cat Dander (E1) Ige 0.16 kU/L; Cat Dander Class 0/1; Cladosporium herbarum <0.10 kU/L; Cladosporium herbarum Class 0; Cockroach <0.10 kU/L; Cockroach Class 0; Common Ragweed (Short) (W1) Ig 3.55 kU/L; Cottonwood <0.10 kU/L; Cottonwood Class 0; D. Farinae Class 3; Dermatophagoides Class 3; Dermatophagoides Farinae (D2) 6.39 kU/L; Dermatophagoides Pteronyssinus 8.04 kU/L; Dog Dander (E5) Ige 0.75 kU/L; Dog Dander Class 2; Elm (T8) Ige <0.10 kU/L; Elm Class 0; Immunoglobulin E 73 kU/L (<OR=114); Johnson Grass (G10) Ige 0.91 kU/L; Johnson Grass Cl 2; Mountain cedar 0.92 kU/L; Mountain cedar Class 2; Mouse Urine Proteins 0.56 kU/L; Mouse Urine Proteins Class 1; Mugwort (W6) Class 0/1; Mugwort (W6) IgE 0.14 kU/L; Oak (T7) Ige <0.10 kU/L; Oak Class 0; Olive Tree (T9) Class 0; Olive Tree (T9) IgE <0.10 kU/L; Penicillium Class 0; Penicillium Notatum (M1) Ige <0.10 kU/L; Perennial Rye Grass (G5) Ige 3.77 kU/L; Perennial Rye Grass Class 3; Ragweeed Class 3; Rough pigweed <0.10 kU/L; Rough pigweed Class 0; Russian Thistle (W11) IgE <0.10 kU/L; Russian Thistle Class 0
== END 2023-03-09 14:57 | disposition home or self-care (01) ==
PROVIDERS: PCP Nurse Practitioner Family; Visit Provider Specialist
DX: R05.9 Cough, unspecified (principal)
CPT/HCPCS: 86003

== ENCOUNTER 2024-07-07 16:39 | Emergency (ER) | payer OTHER, SELFPAY ==
[2024-07-07 16:44] VITALS: BP 142/97; PULSE 91; TEMP 36.4; O2SAT 94
[2024-07-07 17:41] LABS: Basophils # 0.1 10^3/uL (0.0-0.1); Basophils % 0.4 %; Eosinophils # 0.2 10^3/uL (0.0-0.8); Hematocrit 43.8 % (36-47); Lymphocytes # 1.7 10^3/uL (0.8-4.8); Lymphocytes % 13.8 %; Mean Corpuscular HGB Conc 33.3 g/dL (30-55); Mean Corpuscular Hemoglobin 29.1 pg (27-33); Mean Corpuscular Volume 87.4 fl (85-98); Monocytes # 0.6 10^3/uL (0.2-0.9); Monocytes % 4.8 %; Neutrophils # 9.56 10^3/uL (1.8-7.7); Neutrophils % 78.3 %; Nucleated Red Blood Cells % 0 %; Platelet Count 357 10^3/cmm (157-399); Red Blood Count 5.01 10^6/uL (3.85-5.65); Red Cell Distribution Width 13.2 % (12.1-15.1)
[2024-07-07 18:01] LABS: Alanine Aminotransferase 21 U/L (0-33); Albumin Level 4.1 g/dL (3.5-5.2); Alkaline Phosphatase 92 U/L (35-105); Aspartate Amino Transferase 20 U/L (0-32); Blood Urea Nitrogen 12 mg/dL (6-20); Calcium 8.8 mg/dL (8.5-10.5); Carbon Dioxide 23 mmol/L (22-29); Chloride 107 mmol/L (98-107); Globulin 3.1 g/dL (1.3-4.6); Glomerular Filtration Rate 144.9 mL/min (90-130); Glucose 109 mg/dL (65-115); Lipase 38 U/L (13-60); Osmolality Calculated 292 mOsm/kg (285-295); Sodium 141 mmol/L (136-145); Total Bilirubin 0.3 mg/dL (0.15-1.2); Total Protein 7.2 g/dL (6.6-8.7)
--- NOTE | 2024-07-07 18:07 | W.ED.NAVMDI ---
HPI - Nausea/Vomiting/Diarrhea General: Chief complaint: Nausea/Vomiting/Diarrhea Stated complaint: NVD Time Seen by Provider: 07/07/24 17:45 Source: patient Mode of arrival: ambulatory Limitations: no limitations History of Present Illness: 28-year-old female who states she has been having nausea vomiting since this morning states she had severe vomiting she had 10 episodes of vomiting throughout the day states she has had some epigastric cramping she denies any fever she is concerned she may have a viral gastritis. She rates her cramping pain a 3 out of 10. Denies any worse improved factors Associated nausea: Yes Associated symtoms: Reports nausea; Denies chest pain or headache(s) Related Data Home Medications ?Medication ?Instructions ?Recorded ?Confirmed albuterol sulfate 90 mcg/actuation See Rx Instructions .Route .COMPLEX 08/27/19 03/27/23 aerosol inhaler (Ventolin HFA) montelukast 10 mg tablet 10 mg PO DAILY 08/27/19 03/27/23 estradiol 1 mg tablet 1 mg PO DAILY 12/14/19 03/27/23 lamotrigine 100 mg tablet 100 mg PO DAILY 05/10/22 03/27/23 (Lamictal) albuterol sulfate 2.5 mg/3 mL 2.5 mg inhalation Q4H PRN 03/27/23 03/27/23 (0.083 %) solution for nebulization budesonide-formoterol HFA 80 2 puff inhalation BID 03/27/23 03/27/23 mcg-4.5 mcg/actuation aerosol inhaler (Symbicort) cetirizine 10 mg tablet (All Day 10 mg PO DAILY 03/27/23 03/27/23 Allergy (cetirizine)) levocetirizine 5 mg tablet (Xyzal) 5 mg PO BID 03/27/23 03/27/23 prednisone 20 mg tablet 60 mg PO DAILY 03/27/23 03/27/23 Previous Rx's ?Medication ?Instructions ?Recorded venlafaxine 75 mg capsule,extended 225 mg (3 x 75 mg) PO DAILY 30 10/16/21 release 24 hr days #90 caps [id number] 10 ml PO Q6H PRN sinus symptoms 05/10/22 2 mg-30 mg-10 mg/5 mL oral syrup #118 mL (Bromfed DM) ibuprofen 600 mg tablet 600 mg PO Q8H PRN pain #30 tabs 05/10/22 Acapella #1 ea 03/27/23 guaifenesin 600 mg tablet, 600 mg PO Q12H PRN congestion #60 03/27/23 extended release 12 hr (Mucinex) tabs methylprednisolone 4 mg tablets in 4 mg PO DAILY #21 ea 03/27/23 a dose pack (Medrol (Adriel)) ondansetron 4 mg disintegrating 4 mg PO Q6H PRN nausea and 07/07/24 tablet vomiting #14 tabs Allergies Allergy/AdvReac Type Severity Reaction Status Date / Time Penicillins Allergy ALGY-Rash Verified 07/07/24 16:50 Review of Systems Const: Denies: fever(s), chills, body aches or change in appetite ENMT: Denies: throat pain or dental pain Card: Denies: chest pain Resp: Denies: dyspnea GI: Reports: abdominal pain, nausea and vomiting; Denies: diarrhea Musc: Denies: neck pain or back pain Skin/Breast: Denies: rash Neuro: Denies: headache(s) PFS ED PFSH: Medical History (Updated 07/07/24 @ 19:13 by Christopher Kendall MD) PTSD (post-traumatic stress disorder) MDD (major depressive disorder) Asthma Endometriosis Surgical History Status post laparoscopic cholecystectomy (~08/27/19) S/P appendectomy H/O hysterectomy for benign disease Social History Smoking and tobacco/nicotine status: never used tobacco/nicotine Second hand smoke exposure: Yes ( smokes occasionally) Alcohol intake: never Substance/Drug Use: never Current gender identity: Female Physical Exam Const: COMMON NORMALS: no acute distress, patient oriented x3 and healthy appearing HENMT: COMMON NORMALS: normocephalic and atraumatic HEAD & SCALP: normocephalic and atraumatic Neck/C-Spine: COMMON NORMALS: full ROM and supple Chest: COMMONS NORMALS: normal inspection of the chest Resp: COMMON NORMALS: normal respiratory effort, No retractions, No use of accessory muscles and clear to auscultation bilaterally AUSCULTATION: clear to auscultation bilaterally Cardio: COMMON NORMALS: regular rate, regular rhythm and No murmurs present (Cardio) RATE: regular rate RHYTHM: regular rhythm GI: COMMON NORMALS: Normal to inspection, nondistended, normoactive bowel sounds present, Soft to palpation, non-tender and no masses PALPATION: Yes Soft to palpation Extremity: COMMON NORMALS: normal to inspection and full ROM Neuro: COMMON NORMALS: patient oriented x3, moves all extremities and no focal motor deficits Psych: COMMON NORMALS: mental status grossly normal, Normal thought process present and cooperative THOUGHT PROCESS: Normal thought process present Skin: COMMON NORMALS: no rashes or lesions noted and no wounds GENERAL SKIN EXAM: no rashes or lesions noted Course Vital Signs: Vital signs: Vital Signs Temperature 97.5 F L 07/07/24 16:44 Pulse Rate 86 07/07/24 18:58 Blood Pressure 135/94 07/07/24 18:58 Pulse Oximetry 98 07/07/24 18:58 Oxygen Delivery Me thod Room Air 07/07/24 18:58 MDM - Nausea/Vomiting/Diarrhea Medical Decision Making Patient presents with vomiting likely viral in origin she is well-appearing here exam is benign blood works normal no signs of acute surgical abdomen will prescribe Zofran she stable for discharge follow-up PCP return if worsening. Medical Records I reviewed the patient's medical records. Lab Data I reviewed the patient's lab results. 07/07/24 17:29 07/07/24 17:29 Laboratory Results WBC 12.20 10^3/uL (3.29-11.43) H 07/07/24 17: RBC 5.01 10^6/uL (3.85-5.65) 07/07/24 17: Hgb 14.60 g/dL (11.27-16.99) 07/07/24 17: Hct 43.8 % (36-47) 07/07/24 17: MCV 87.4 fl (85-98) 07/07/24 17: MCH 29.1 pg (27-33) 07/07/24 17: MCHC 33.3 g/dL (30-55) 07/07/24 17: RDW 13.2 % (12.1-15.1) 07/07/24 17:29 Plt Count 357 10^3/cmm (157-399) 07/07/24 17: MPV 10.0 fL (7.4-10.4) 07/07/24 17: Neut % (Auto) 78.3 % 07/07/24 17: Lymph % (Auto) 13.8 % 07/07/24 17: [place] % (Auto) 4.8 % 07/07/24 17: Eos % (Auto) 2.0 % 07/07/24 17: Baso % (Auto) 0.4 % 07/07/24 17: Neut # (Auto) 9.56 10^3/uL (1.8-7.7) H 07/07/24 17: Lymph # (Auto) 1.7 10^3/uL (0.8-4.8) 07/07/24: [place] # (Auto) 0.6 10^3/uL (0.2-0.9) 07/07/24 17: Eos # (Auto) 0.2 10^3/uL (0.0-0.8) 07/07/24 17: Baso # (Auto) 0.1 10^3/uL (0.0-0.1) 07/07/24: Nucleated RBC % (auto) 0 % 07/07/24: Nucleated RBCs # 0.0 /100WBC 07/07/24 17: Sodium 141 mmol/L (136-145) 07/07/24 17: Potassium 4.0 mmol/L (3.5-5.1) 07/07/24 17: Chloride 107 mmol/L (98-107) 07/07/24 17: Carbon Dioxide 23 mmol/L (22-29) 07/07/24 17: Anion Gap 15.0 (5-19) 07/07/24 17: BUN 12 mg/dL (6-20) 07/07/24 17: Creatinine 0.5 mg/dL (0.5-0.9) 07/07/24 17: GFR Calculation 144.9 mL/min (90-130) H 07/07/24 17: Glucose 109 mg/dL (65-115) 07/07/24 17:29 Calculated Osmolality 292 mOsm/kg (285-295) 07/07/24 17: Calcium 8.8 mg/dL (8.5-10.5) 07/07/24 17: Total Bilirubin 0.3 mg/dL (0.15-1.2) 07/07/24 17:29 AST 20 U/L (0-32) 07/07/24 17: ALT 21 U/L (0-33) 07/07/24 17: Alkaline Phosphatase 92 U/L (35-105) 07/07/24 17: Total Protein 7.2 g/dL (6.6-8.7) 07/07/24 17: Albumin 4.1 g/dL (3.5-5.2) 07/07/24 17: Globulin 3.1 g/dL (1.3-4.6) 07/07/24 17: Lipase 38 U/L (13-60) 07/07/24 17:29 Urine Color Yellow (Yellow) 07/07/24 18:41 Urine Appearance Clear (CLEAR) 07/07/24 18:41 Urine pH 5.5 (5-7) 07/07/24 18:41 Ur Specific [place] 1.026 (1.005-1.030) 07/07/24 18:41 Urine Protein Negative (Negative) 07/07/24 18:41 Urine Glucose (UA) Negative (Normal) 07/07/24 18:41 Urine Ketones Negative (Negative) 07/07/24 18:41 Urine Blood Negative (Negative) 07/07/24 18:41 Urine Nitrate Negative (Negative) 07/07/24 18:41 Urine Bilirubin Negative (Negative) 07/07/24 18:41 Urine Urobilinogen 1.0 mg/dL (Negative) 07/07/24 18:41 Ur Leukocyte Esterase Negative (Negative) 07/07/24 18:41 Amorphous Sediment Not Reportable 07/07/24 18:41 No radiology studies performed this visit Discharge Plan Discharge Patient Disposition: Home Clinical Impression: Vomiting Condition: Stable Prescriptions: New ondansetron 4 mg tablet,disintegrating 4 mg PO Q6H PRN (Reason: nausea and vomiting) Qty: 14 0RF No Action estradiol 1 mg tablet 1 mg PO DAILY Rx Instructions: off 1 week; repeat cycle lamotrigine [Lamictal] 100 mg tablet 100 mg PO DAILY [id number] [Bromfed DM] 2-30-10 mg/5 mL syrup 10 ml PO Q6H PRN (Reason: sinus symptoms) Qty: 118 0RF ibuprofen 600 mg tablet 600 mg PO Q8H PRN (Reason: pain) Qty: 30 0RF budesonide-formoterol [Symbicort] 80-4.5 mcg/actuation HFA aerosol inhaler 2 puff inhalation BID levocetirizine [Xyzal] 5 mg tablet 5 mg PO BID prednisone 20 mg tablet 60 mg PO DAILY cetirizine [All Day Allergy (cetirizine)] 10 mg tablet 10 mg PO DAILY albuterol sulfate 2.5 mg /3 mL (0.083 %) solution for nebulization 2.5 mg inhalation Q4H PRN guaifenesin [Mucinex] 600 mg tablet extended release 12hr 600 mg PO Q12H PRN (Reason: congestion) Qty: 60 2RF methylprednisolone [Medrol (Adriel)] 4 mg tablets,dose pack 4 mg PO DAILY Qty: 21 0RF (DME) Acapella See Rx Instructions .Route .MEDSUPPLY Qty: 1 0RF Rx Instructions: As directed venlafaxine 75 mg capsule,extended release 24hr 225 mg PO DAILY 30 Days Qty: 90 6RF montelukast 10 mg tablet 10 mg PO DAILY Ventolin HFA 90 mcg/actuation HFA aerosol inhaler See Rx Instructions .ROUTE .COMPLEX Rx Instructions: inhaled use as directed Discharge Orders: Discharge ED (Routine); Ordered 07/07/24 Ordered By: Christopher Kendall Referrals: Loida Le FNP [Primary Care Provider] - 4-7 days Discharge Diet: Advance as tolerated Discharge Activity: Resume usual activity Patient Instructions: Acute Nausea and Vomiting (ED) Print Language: Greek Coding Level of Care Code ED 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
[2024-07-07] MEDS: sodium chloride 0.9% 1,000 ML 999 ML IV (18:38)
[2024-07-07] MEDS: ondansetron 2 mg/ML SDV 2 mL 4 MG IVP (18:38)
[2024-07-07 18:49] LABS: Add Urine Microscopic? NO
[2024-07-07 18:52] LABS: Bilirubin Urine Negative (Negative); Blood Urine Negative (Negative); Glucose Urine UA Negative (Normal); Ketones Urine Negative (Negative); Leukocyte Esterase Urine Negative (Negative); Nitrate Urine Negative (Negative); Protein Urine Negative (Negative); Specific Gravity, Urine 1.026 (1.005-1.030); Urine Appearance Clear (CLEAR); Urine Color Yellow (Yellow); pH Urine 5.5 (5-7)
[2024-07-07 18:58] VITALS: BP 135/94; PULSE 86; O2SAT 98
[2024-07-07 19:02] LABS: Charge for UA Resulting for Rev
[2024-07-07 19:36] VITALS: BP 131/99; PULSE 82; O2SAT 98
[2024-07-07 19:37] LABS: Influenza A NEGATIVE (Negative); Influenza B NEGATIVE (Negative); Respiratory Syncytial Virus Ce NEGATIVE (Negative); SARS-CoV-2 PCR NEGATIVE (Negative)
== END 2024-07-07 19:36 | disposition home or self-care (01) ==
PROVIDERS: Emergency Provider Emergency Medicine; PCP Nurse Practitioner Family
DX: R11.10 Vomiting, unspecified (principal)
CPT/HCPCS: 36415; 80053; 81003; 83690; 85025; 87637; 96374; 99284; J2405; J7030

== ENCOUNTER 2024-12-03 22:21 | Emergency (ER) | payer OTHER, SELFPAY ==
--- OUTSIDE RECORDS SUMMARY | 2024-12-03 22:25 | XMS_ITS | Clinical Summary ---
Author Organization [facility] Address [address] [facility] Attn: Epic Prelude ADT [place] COLLADO [address] Care Team Providers Care Unit Trust Manager Name Role Phone Joleen Cutler DO Primary Care Provider Allergies Active Allergy Reactions Criticality Noted Date Comments Penicillins Hives High 06/29/2015 Medications citalopram (CeleXA) 20 mg tabletIndicatio ns:Anxiety attack Take 1 Tablet (20 mg) by mouth daily at bedtime. 30 Tablet 2 06/29/2015 Active ALPRAZolam (XANAX) 0.25 mg tablet Take 1 Tablet (0.25 mg) by mouth nightly as needed for Anxiety. 30 Tablet 2 07/13/2015 Active estradioL (ESTRACE) 1 mg tablet Take 1 Tablet by mouth daily. 04/04/2024 Active ferrous gluconate 324 mg (38 mg iron) tablet Take 1 Tablet by mouth daily. 04/04/2024 Active folic acid (FOLVITE) 1 mg tablet Take 1 Tablet by mouth daily. 04/04/2024 Active losartan (COZAAR) 25 mg tablet Take 1 Tablet by mouth daily. 04/04/2024 Active venlafaxine (EFFEXOR XR) 75 mg Extended Release 24 hour capsule Take 3 Capsules by mouth daily. 04/04/2024 Active montelukast (SINGULAIR) 10 mg tablet Take 1 Tablet by mouth daily. 04/04/2024 Active lamoTRIgine (LaMICtal) 150 mg tablet Take 1 Tablet by mouth daily. 04/04/2024 Active levocetirizine (XYZAL) 5 mg tablet Take 1 Tablet by mouth 2 times daily. 04/04/2024 Active Active Problems Problem Noted Date Diagnosed Date Irregular menstruation 10/21/2010 Encounters Date Type Department Care Team Description 11/23/2024 External Device Data [facility] Provider, Abstract 11/23/2024 External Device Data [facility] AB[facility]CTION Provider, Abstract 11/08/2024 External Device Data [facility] Provider, Abstract 09/19/2024 Telephone [facility] [place] [facility] [address] [place] [phone] Giovanni Joshua MD ARRIVAL TIME 09/12/2024 Orders Only [facility] [place] [facility] [address] [place] [phone] Giovanni Joshua MD 09/12/2024 Orders Only [facility] [place] [address] [place] [phone] Giovanni Joshua MD from Last 3 Months Immunizations Immunization Administration Dates Next Due (M-M-R II/PRIORIX)(12 MO UP) MEASLES, MUMPS AND RUBELLA VIRUS VACCINE, 0.5 ML IM/SUBCUT 06/09/1995 Dt Dtp Dtap Vaccine 12/22/2007, 6,05/26/1994,03/05,1993 HIB, Unspecified Formulation 06/09/1995, 05/26/1994,03/05/1994,12/25 Hepatitis B Vaccine 03/05/1994,1993,1993 IPV/OPV 05/26/1994,03/05/1994,1993 Influenza Seasonal Unspecifi ed Formulation IM 03/03/2008,03/10/2007,03/31/2006 Meningococcal A Conjugate Vaccine IM 11/22/2010 Social History Tobacco Use Types Packs/Day Years Used Date Smoking Tobacco: Never Smokeless Tobacco: Never Tobacco Cessation:Counseling Given: No Alcohol Use Standard Drinks/Week Comments Yes 0 (1 standard drink = 0.6 oz pur e alcohol) Comments Unknown Sex and Gender Information Value Date Recorded Sex Assigned at Female 03/31/2024 5:17 PM DIRECTOR OF PUPIL PERSONNEL PROGRAM Legal Sex Female 2:02 AM DIRECTOR OF PUPIL PERSONNEL PROGRAM Gender Identity Female 03/31/2024 5:17 PM DIRECTOR OF PUPIL PERSONNEL PROGRAM Sexual Orientation Not on file Last Filed Vital Signs Vital Sign Reading Time Taken Comments Blood Pressure 128/74 05/05/2024 9:46 AM DIRECTOR OF PUPIL PERSONNEL PROGRAM Pulse 75 05/05/2024 9:46 AM DIRECTOR OF PUPIL PERSONNEL PROGRAM Temperature 36.3 C (97.3 F) 05/05/2024 9:46 AM DIRECTOR OF PUPIL PERSONNEL PROGRAM Respiratory Rate - - Oxygen Saturation 95% 05/05/2024 9:46 AM DIRECTOR OF PUPIL PERSONNEL PROGRAM Inhaled Oxygen Concentration - - Weight 119.5 kg (263 lb 6.4 oz) 05/05/2024 9:46 AM DIRECTOR OF PUPIL PERSONNEL PROGRAM Height 162.6 cm (5' 4 ) 05/05/2024 9:46 AM DIRECTOR OF PUPIL PERSONNEL PROGRAM Body Mass Index 45.21 05/05/2024 9:46 AM DIRECTOR OF PUPIL PERSONNEL PROGRAM Plan of Treatment Health Maintenance Due Date Last Done Comments HPV VACCINES (1 - 3-dose series) 2008 HPV/Cotest (21-29) 2014 DTAP/TDAP/TD VACCINES (6 - Tdap) 12/21/2017 12/22/2007, 06/09/1995, 05/26/1994, Additional history exists CERVICAL CANCER SCREENING 09/23/2023 HPV/Cotest (30-65) 09/23/2023 PAP SMEAR 09/23/2023 Preventative Visit- Commercial 05/11/2024 11/22/2010 INFLUENZA VACCINE (#1) 2024 8, 03/10/2007, 03/31/2006 HEPATITIS B VACCINES Completed 03/05/1994, 1993, 1993 [place] [facility] [place] [address] [facility] [address] [facility] [id number] Care Teams Unit Trust Manager Relationship Specialty Start Date End Date Joleen Cutler DO [address] [facility] [address] PCP - General Family Practice 06/29/15
--- OUTSIDE RECORDS SUMMARY | 2024-12-03 22:25 | XMS_ITS | Patient Health Record ---
Author Organization [facility] Address [address] [place] [address] Care Team Providers Care Pre Assembly Wirer Name Role Phone Giovanni Goodwin Primary Care Provider [phone] Allergies No Known Allergies Results Component Value Reference Range Flag Notes Miscellaneous Test Reviewed date:01/14/2024 11:25:29 AM Interpretation: Performing Lab: Notes/Report: % Iron Saturation (Fe & TIBC )--27165,24852 Reviewed date:01/01/2024 10:21:19 AM Interpretation: Performing Lab: Notes/Report: Iron 62 50-170 MCG/DL Per Iron as say instruction for Use(IFU), patients treated with metal-binding drugs (e.g.deferoxamine) may have depressed iron values as chelated iron may not properly react in the iron assay. Testing was performed with this assay method. TIBC 346 250-450 NG/DL % Iron Saturation 18 20-50 % LOW Reticulocyte Panel 37085, 85 046 Reviewed date:01/01/2024 10:22:39 AM Interpretation: Performing Lab: Notes/Report: Diagnosis Description: Other abnormality of red blood cells IRF 21.0 9.3-17.4 % HI Ret-Hgb 32.6 30.6-40.7 pg Ret-Abs .18 .02-.12 /UL HI Ret % 3.5 .5-1.5 % HI CRP 82361 Reviewed date:01/01/2024 10:21:28 AM Interpretation: Performing Lab: Notes/Report: Diagnosis Description: Other abnormality of red blood cells CRP 2.18 .40-1.00 MG/DL HI Vitamin B12 (B) 03605 Reviewed date:01/01/2024 12:01:21 PM Interpretation: Performing Lab: Notes/Report: Diagnosis Description: Other abnormality of red blood cells PoihuthS16 349 211-911 pg/mL Sedimentation Rate 13300 Reviewed date:01/01/2024 10:21:45 AM Interpretation: Performing Lab: Notes/Report: Diagnosis Description: Other abnormality of red blood cells Sed Rate 20 0-20 MM/HR Folate 92854 Reviewed date:01/01/2024 10:21:40 AM Interpretation: Performing Lab: Notes/Report: Diagnosis Description: Other abnormality of red blood cells Folate 4.39 5.38-24.00 ng/mL LOW Referenc e Range: 5.38->24.00. Patient dosage up to or equal to 50 ng/ml of Biotin (vitamin B7) can potentially increase or decrease results of folate assay with a less than 10% bias. Concentrations of Biotin greater than 50ng/ml can potentially increase or decrease results of Folate assay with a greater than 10% bias. CBC w\ Auto Diff 68787 Reviewed date:01/01/2024 10:22:10 AM Interpretation: Performing Lab: Notes/Report: Diagnosis Description: Other abnormality of red blood cells WBC 8.6 4.5-11.0 X10'3 RBC 5.30 4.00-5.20 X10'6 HI Hgb 15.0 12.0-16.0 G/DL Hct 46.2 36.0-46.0 % HI MCV 87.2 80.0-100.0 FL MCH 28.3 27.0-31.0 PG MCHC 32.5 31.0-37.0 G/DL Platelet 385 150-400 X10'3 RDW-SD 43.0 35.0-49.0 FL RDW-CV 13.5 12.2-15.6 % MPV 11.3 9.2-12.0 FL Neutro Auto% 61.1 40.0-70.0 % Lymph Auto% 30.4 22.0-44.0 % [place] Auto% 4.8 3.0-7.0 % Eos Auto% 2.3 2.0-4.0 % Baso Auto% 0.5 0.0-1.0 % Imm Gran% .9 .0-.4 % HI Neutro Abs 5.27 .80-7.70 Absolute Neutrophil Count 5270 NA Lymph Abs 2.62 .10-4.10 [place] Abs .41 .20-1.00 Eos Abs .20 .00-.40 Baso Abs .04 .00-.20 Imm Gran Abs .08 .00-.10 NRBC# .00 .00-.20 X10'3 NRBC% .00 .00-.20 /100 intact WBC's CBC w\ Manual Diff 85740, 85 027 Reviewed date:02/02/2024 12:41:31 PM Interpretation: Performing Lab: Notes/Report: WBC 6.6 4.5-11.0 X10'3 RBC 5.06 4.00-5.20 X10'6 Hgb 14.5 12.0-16.0 G/DL Hct 44.0 36.0-46.0 % MCV 87.0 80.0-100.0 FL MCH 28.7 27.0-31.0 PG MCHC 33.0 31.0-37.0 G/DL Platelet 350 150-400 X10'3 RDW-SD 43.1 35.0-49.0 FL RDW-CV 13.6 12.2-15.6 % MPV 11.3 9.2-12.0 FL Band/Segs Man 50 40-70 % Lymph Man 39 22-44 % Monocyte Man 5 3-7 % Eos Man 5 2-4 % HI Basophil Man 1 0-1 % PLT Appear Adequate RBC Morph Normal Morph Absolute Neutrophil Count 3300 NA Pathologist Review Sent to Pathologist Interpretation By Pathologist Pathologist reviewed smear and agrees with Technologist findings. Arcadio Lea MD , 01/19/2024 NA Miscellaneous Test Reviewed date:02/02/2024 12:43:25 PM Interpretation: Performing Lab: Notes/Report: Misc Sent to Ref Lab Name of Misc Test [facility]#[id number] NA Reason For Referral No Information Medications Medication SIG (Take, Route, Frequency, Duration) Notes Start Date End Date Status ZyrTEC 10 MG Tablet Chewable 1 tablet Orally Once a day Active Breyna 80-4.5 MCG/ACT Aerosol 1 puff as needed Inhalation every 4 hrs Active Ferrous Gluconate 324 (38 Fe) MG Tablet TAKE ONE TABLET BY MOUTH DAILY; Duration: 30 days Active Folic Acid 1 mg Tablet TAKE ONE TABLET B Y MOUTH DAILY; Duration: 30 days Active Albuterol Sulfate HFA 108 (90 Base) MCG/ACT Aerosol Solution 1 puff as needed Inhalation every 4 hrs Not-Taking valACYclovir HCl 500 MG Tablet 1 tablet Orally Once a day As needed Active Mucinex 600 MG Tablet Extended Release 12 Hour 1 tablet as needed Orally every 12 hrs Not-Taking Ondansetron 4 MG Tablet Disintegrating 1 tablet on the tongue and allow to dissolve Orally Once a day Active Estradiol 1 mg Tablet TAKE 1 TABLET BY MOUTH EVERY DAY; Duration: 21 Active Losartan Potassium 25 mg Tablet TAKE ONE TABLET BY MOUTH ONCE DAILY; Duration: 21 Active Levocetirizine Dihydrochloride 5 mg Tablet TAKE ONE TABLET BY MOUTH TWICE DAILY; Duration: 21 Active Venlafaxine HCl ER 75 mg Capsule Extended Release 24 Hour TAKE THREE CAPSULES BY MOUTH EVERY DAY; Duration: 90 Active Montelukast Sodium 10 mg Tablet TAKE 1 TABLET BY MOUTH EVERY DAY; Duration: 21 Active lamoTRIgine 150 mg Tablet TAKE 1 TABLET BY MOUTH DAILY; Duration: 6 Active Promethazine HCl 25 MG Tablet 1 tablet as needed Orally every 12 hrs Active Albuterol Sulfate (2.5 MG/3ML) 0.083% Nebulization Solution 3 mL as needed Inhalation every 6 hrs Active Ventolin HFA 108 (90 Base) MCG/ACT Aerosol Solution 1 puff as needed Inhalation every 4 hrs Active Social History Tobacco Use: Social History Observation Description Date Details (start date - stop date) Never Smoker NA - NA Social History Depression Screening Social Info Question Answer Notes depression screening findings Findings Positive (5+ without suicidality) 11/07/24 PHQ-9 Little interest or pleasure in doing things Not at all Feeling down, depressed, or hopeless Not at all Trouble falling or staying asleep, or sleeping t oo much Nearly every day Feeling tired or having little energy Nearly thalia ry day Poor appetite or overeating Not at all Feeling bad about yourself, or that you are a failure, or have let yourself or your family down Not at all Trouble concentrating on thi ngs, such as reading the newspaper or watching television Not at all Moving or speaking so slowly that other people could have noticed. Or the opposite ? being so fidgety or restless that you have been moving around a lot more than usual Not at all Thoughts that you would be b galdino off , or of hurting yourself in some way Not at all Total Score 6 Interpretation Mild Depression Drugs/Alcohol: Social Info Question Answer Notes Drugs Have you used drugs other than those for medical reasons in the past 12 months? No Drug/Alcohol: Social Info Question Answer Notes AUDIT-C (Standard) Did you have a drink containing alcohol in the past year? No Points 0 Interpretation Negative Tobacco Use: Social Info Question Answer Notes Tobacco Control (Standard) Tobacco use: Nonsmoker Section Notes: CIMe Dep/Tob 11/07/24 Problems Problem Type SNOMED Code ICD Code Onset Dates Problem Status W/U Status Risk Notes Problem Mild intermittent asthma without complication (J45.20) Active confirmed Problem Chronic anemia (116872812) Chronic anemia (D64.9) Active confirmed Problem Daytime somnolence (450580260561) Daytime somnolence (R40.0) Active confirmed Vital Signs Heart Rate 83 /min 11/07/2024 Temperature 98.4 degrees Fahrenheit 11/07/2024 Height-cm 162.56 cm 11/07/2024 Oximetry 96 % 11/07/2024 Blood pressure diastolic 94 mm Hg 11/07/2024 Weight-kg 121.11 kg 11/07/2024 Height 64 in 11/07/2024 Blood pressure systolic 124 mm Hg 11/07/2024 Weight 267 lbs 11/07/2024 BMI 45.83 kg/m2 11/07/2024 Procedures Procedure Date Ordered Date Performed Result Body Sit e SLEEP STUDY, UNATTENDED 11/07/2024 11/28/2024 N/A Encounters Encounter Location Date Provider Diagnosis [facility] [address] [place] [phone] 11/07/2024 Giovanni Goodwin Mild intermittent asthma without complication J45.20 ; Chronic anemia D64.9 ; Daytime somnolence R40.0 and Depression screen Z13.31 [facility] [address] [place] [phone] 01/18/2024 Giovanni Goodwin Folate deficiency E53.8 [facility] [address] [place] [phone] 12/31/2023 Giovanni Goodwin Abnormal RBC R71.8 [facility] [address] [place] [phone] 01/01/2024 [facility] [address] [address] 01/01/2024 Edgarlois Goodwin [facility] [address] [phone] 11/28/2024 Giovanni Goodwin [facility] [address] [phone] 01/01/2024 [facility] [address] [address] 01/29/2024 [facility] Assessments Encounter Date Diagnosis (ICD Code) Assessment Notes Treatment Notes Treatment Clinical Notes Section Notes 01/18/2024 Folate deficiency (ICD-10 - E53.8) 11/07/2024 Mild intermittent asthma without complication (ICD-10 - J45.20) 11/07/2024 Chronic anemia (ICD-10 - D64.9) 12/31/2023 Abnormal RBC (ICD-10 - R71.8) 11/07/2024 Daytime somnolence (ICD-10 - R40.0) 11/07/2024 Depression screen (ICD-10 - Z13.31) 12/31/2023 Other Venipuncture performed by Nancy Peña. Left arm/hand. One attempt. Pt tolerated well, bleeding controlled with light dressing. Lab sent to [facility] via marine fireman. 01/18/2024 Other Venipuncture performed by Nancy Peña. Right arm/hand. One attempt. Pt tolerated well, bleeding controlled with light dressing. Lab sent to [facility] via marine fireman. Plan Of Treatment Next Appt Details Provider Name:Giovanni Goodwin, 12/08/2024 08:00:00 AM, [address] [place] [address], [phone], Insurance Providers Payer Name Payer Address Payer Phone Subscriber Number Group Number Insured Name Patient Relationship to Insured Coverage Start Date Coverage End Date [facility] [employer] [address] [place] [address] [id number] Irish Smith Self - patient is the insured Medical (General) History Medical History History ICD Code High Blood Pressure asthma anxiety Depression endometriosis stage 4 Surgical History Surgery Date(Month/Year) hysterectomy appendectomy cholecystectomy
--- OUTSIDE RECORDS SUMMARY | 2024-12-03 22:25 | XMS_ITS | Encounter Summary ---
Author Organization [employer] Address [address] [place] [address] Care Team Providers Care Warrant Clerk Name Role Phone Joleen Cutler DO Primary Care Provider [phone] Encounter Details Date Type Department Care Team (Late st Contact Info) Description 11/23/2024 External Device Data [facility] Provider, Abstract NO ADDRESS ON FILE Social History Tobacco Use Types Packs/Day Years Used Date Smoking Tobacco: Never Smokeless Tobacco: Never Alcohol Use Standard Drinks/Week Comments Yes 0 (1 standard drink = 0.6 oz pur e alcohol) Comments Unknown Sex and Gender Information Value Date Recorded Sex Assigned at Female 03/31/2024 5:17 PM UX RESEARCH ASSOCIATE Legal Sex Female 2:02 AM UX RESEARCH ASSOCIATE Gender Identity Female 03/31/2024 5:17 PM UX RESEARCH ASSOCIATE Sexual Orientation Not on file documented as of this encounter Plan of Treatment Not on file documented as of this encounter Visit Diagnoses Not on filedocumented in this encounter Care Teams Warrant Clerk Relationship Specialty Start Date End Date Joleen Cutler DO [address] [place] [address] PCP - General Family Practice 06/29/15 documented as of this encounter
[2024-12-03 22:30] VITALS: BP 140/88; PULSE 87; RESP 18; TEMP 36.7; O2SAT 96; BMI 45.4
[2024-12-04 00:55] VITALS: BP 150/87; PULSE 86; O2SAT 95
--- NOTE | 2024-12-04 01:50 | CTR_ITS ---
PROCEDURE INFORMATION: Exam: CT Lumbar Spine Without Contrast Exam date and time: 12/04/2024 2:00 AM Age: 29 years old Clinical indication: Prior surgery; Surgery date: 6+ months; Surgery type: Gb. Hysterectomy; C/O severe low back pain after feeling pop in lumbar when squatting down earlier today. ; Additional info: Acute low back pain TECHNIQUE: Imaging protocol: Computed tomography of the lumbar spine without contrast. Radiation optimization: All CT scans at this facility use at least one of these dose optimization techniques: automated exposure control; mA and/or kV adjustment per patient size (includes targeted exams where dose is matched to clinical indication); or iterative reconstruction. COMPARISON: CT abdomen pelvis w con* [id number] 11/11/2021 6:10 PM RADIATION DOSE METRICS: Total DLP (mGy-cm): 1039.11 FINDINGS: Bones/joints: No acute fracture. Normal alignment. No significant disc bulge or herniation. No spinal canal stenosis. No significant neural foraminal narrowing. Soft tissues: No paraspinous soft tissue abnormality. Incidental notation of tiny nonobstructive calculus in the left kidney. CT/CT lumbar spine wo con* [id number] IMPRESSION: 1. No acute abnormalities of the lumbar spine. 2. Incidental notation of nonobstructive left nephrolithiasis.
[2024-12-04 01:55] VITALS: BP 150/84; PULSE 85; O2SAT 96
[2024-12-04 02:53] VITALS: BP 115/59
[2024-12-04] MEDS: ondansetron 2 mg/ML SDV 2 mL 4 MG IVP (02:59)
[2024-12-04] MEDS: HYDROmorphone 0.5 MG/0.5 ML INJ 1 MG IVP (02:59)
[2024-12-04] MEDS: orphenadrine 30 mg/mL Inj 2 mL 60 MG IVP (03:22)
[2024-12-04 03:25] VITALS: BP 115/59; PULSE 84; O2SAT 94
--- NOTE | 2024-12-04 05:37 | W.ED.BACK ---
HPI - Back Pain/Injury General: Chief Complaint: Back Pain/Injury Stated Complaint: Lower Back Pain Time Seen by Provider: 12/04/24 01:40 History of Present Illness: 29-year-old female with sudden onset of acute low back pain after bending over and hearing a pop yesterday. Pain is intense and localized to the lumbosacral junction in the midline. It is nonradicular. No significant numbness or tingling. No weakness. No loss of bowel or bladder function. No groin anesthesia or saddle anesthesia. No fever. She has a history of a hysterectomy and is not . No dysuria or hematuria. Related Data Home Medications ?Medication ?Instructions ?Recorded ?Confirmed albuterol sulfate 90 mcg/actuation See Rx Instructions .Route .COMPLEX 08/27/19 03/27/23 aerosol inhaler (Ventolin HFA) montelukast 10 mg tablet 10 mg PO DAILY 08/27/19 03/27/23 estradiol 1 mg tablet 1 mg PO DAILY 12/14/19 03/27/23 lamotrigine 100 mg tablet 100 mg PO DAILY 05/10/22 03/27/23 (Lamictal) albuterol sulfate 2.5 mg/3 mL 2.5 mg inhalation Q4H PRN 03/27/23 03/27/23 (0.083 %) solution for nebulization budesonide-formoterol HFA 80 2 puff inhalation BID 03/27/23 03/27/23 mcg-4.5 mcg/actuation aerosol inhaler (Symbicort) cetirizine 10 mg tablet (All Day 10 mg PO DAILY 03/27/23 03/27/23 Allergy (cetirizine)) levocetirizine 5 mg tablet (Xyzal) 5 mg PO BID 03/27/23 03/27/23 prednisone 20 mg tablet 60 mg PO DAILY 03/27/23 03/27/23 Previous Rx's ?Medication ?Instructions ?Recorded venlafaxine 75 mg capsule,extended 225 mg (3 x 75 mg) PO DAILY 30 10/16/21 release 24 hr days #90 caps wohobxfssewuimk-ufmoigpourbrohw-QD 10 ml PO Q6H PRN sinus symptoms 05/10/22 2 mg-30 mg-10 mg/5 mL oral syrup #118 mL (Bromfed DM) ibuprofen 600 mg tablet 600 mg PO Q8H PRN pain #30 tabs 05/10/22 Acapella #1 ea 03/27/23 guaifenesin 600 mg tablet, 600 mg PO Q12H PRN congestion #60 03/27/23 extended release 12 hr (Mucinex) tabs methocarbamol 750 mg tablet 750 mg PO TID #20 tabs 12/04/24 methylprednisolone 4 mg tablets in 4 mg PO DAILY #21 ea 12/04/24 a dose pack (Medrol (Adriel)) ondansetron 4 mg disintegrating 4 mg PO Q6H PRN nausea and 12/04/24 tablet vomiting #14 tabs oxycodone-acetaminophen 7.5 mg-325 1 tab PO Q6H PRN pain #10 tabs 12/04/24 mg tablet (Percocet) Allergies Allergy/AdvReac Type Severity Reaction Status Date / Time Penicillins Allergy ALGY-Rash Verified 07/07/24 16:50 PFSH ED PFSH: Medical History PTSD (post-traumatic stress disorder) MDD (major depressive disorder) Asthma Endometriosis Surgical History Status post laparoscopic cholecystectomy (~08/27/19) S/P appendectomy H/O hysterectomy for benign disease Social History Smoking and tobacco/nicotine status: never used tobacco/nicotine Second hand smoke exposure: Yes ( smokes occasionally) Alcohol intake: never Substance/Drug Use: never Current gender identity: Female Physical Exam Const: COMMON NORMALS: no acute distress GENERAL APPEARANCE: cooperative; not ill appearing and not frail appearing HENMT: COMMON NORMALS: normocephalic, atraumatic and Normal external nose present HEAD & SCALP: normocephalic and atraumatic FACE & SINUS: normal facial exam and face symmetric NOSE: Normal external nose present Eye: COMMON NORMALS: Equal, round and reactive pupils present and EOMs intact bilaterally PUPIL: Yes Equal, round and reactive pupils present Neck/C-Spine: GENERAL: Yes trachea midline Chest: CHEST: Yes Symmetrical chest wall rise Resp: COMMON NORMALS: normal respiratory effort, No retractions, No use of accessory muscles and clear to auscultation bilaterally AUSCULTATION: clear to auscultation bilaterally Cardio: COMMON NORMALS: regular rate and regular rhythm RATE: regular rate RHYTHM: regular rhythm Back/Pelvis: OTHER: Examination of the lumbar spine reveals focal tenderness over the L5-S1 area in the midline. There is minimal paraspinal tenderness or spasm. Straight leg raise test is negative for radicular pain bilaterally. Sensation is intact distally and pulses are normal distally. Extremity: COMMON NORMALS: no pedal edema Neuro: RICHARD COMA SCALE: document GCS findings [place] coma scale eye opening: Spontaneous Richard coma scale verbal response: Orientated Richard coma scale motor response: Obey commands [place] coma scale total score: 15 SENSORY EXAM: Yes extremities (intact) Psych: COMMON NORMALS: speech normal SPEECH: Yes normal speech Skin: COMMON NORMALS: no rashes or lesions noted GENERAL SKIN EXAM: no rashes or lesions noted Course Vital Signs: Vital signs: Vital Signs Temperature 98.1 F 12/03/24 22:30 Pulse Rate 84 12/04/24 03:25 Respiratory Rate 18 12/03/24 22:30 Blood Pressure 115/59 12/04/24 03:25 Pulse Oximetry 94 12/04/24 03:25 Oxygen Delivery Me thod Room Air 12/04/24 01:55 MDM - Back Pain/Injury Medical Decision Making Exam is consistent with acute lumbar sprain. Likely of the interspinous ligament. Lumbar CT does not show acute disc herniation, fracture, mass, etc. She is given IV pain medication here as well as steroids. Home on steroid taper, muscle relaxers, pain medication as needed. Close outpatient follow-up. Return for new or worsening symptoms. Labs Radiology Impressions Lumbar Spine CT 12/04/24 01:50 IMPRESSION: 1. No acute abnormalities of the lumbar spine. 2. Incidental notation of nonobstructive left nephrolithiasis. All radiology interpretation(s) finalized by discharge Discharge Plan Discharge Patient Disposition: Home Clinical Impression: Lumbar back sprain Condition: Stable Prescriptions: New oxycodone-acetaminophen [Percocet] 7.5-325 mg tablet 1 tab PO Q6H PRN (Reason: pain) Qty: 10 0RF methocarbamol 750 mg tablet 750 mg PO TID Qty: 20 0RF Continued methylprednisolone [Medrol (Adriel)] 4 mg tablets,dose pack 4 mg PO DAILY Qty: 21 0RF ondansetron 4 mg tablet,disintegrating 4 mg PO Q6H PRN (Reason: nausea and vomiting) Qty: 14 0RF No Action estradiol 1 mg tablet 1 mg PO DAILY Rx Instructions: off 1 week; repeat cycle lamotrigine [Lamictal] 100 mg tablet 100 mg PO DAILY [id number] [Bromfed DM] 2-30-10 mg/5 mL syrup 10 ml PO Q6H PRN (Reason: sinus symptoms) Qty: 118 0RF ibuprofen 600 mg tablet 600 mg PO Q8H PRN (Reason: pain) Qty: 30 0RF budesonide-formoterol [Symbicort] 80-4.5 mcg/actuation HFA aerosol inhaler 2 puff inhalation BID levocetirizine [Xyzal] 5 mg tablet 5 mg PO BID prednisone 20 mg tablet 60 mg PO DAILY cetirizine [All Day Allergy (cetirizine)] 10 mg tablet 10 mg PO DAILY albuterol sulfate 2.5 mg /3 mL (0.083 %) solution for nebulization 2.5 mg inhalation Q4H PRN guaifenesin [Mucinex] 600 mg tablet extended release 12hr 600 mg PO Q12H PRN (Reason: congestion) Qty: 60 2RF (DME) Acapella See Rx Instructions .Route .MEDSUPPLY Qty: 1 0RF Rx Instructions: As directed venlafaxine 75 mg capsule,extended release 24hr 225 mg PO DAILY 30 Days Qty: 90 6RF montelukast 10 mg tablet 10 mg PO DAILY Ventolin HFA 90 mcg/actuation HFA aerosol inhaler See Rx Instructions .ROUTE .COMPLEX Rx Instructions: inhaled use as directed Discharge Orders: Discharge ED (Routine); Ordered 12/04/24 Ordered By: Timi Page Referrals: Loida Le FNP [Primary Care Provider, Family Practice] - 1-3 days Patient Instructions: Acute Low Back Pain (ED), Opioid Safety, Pain Management, Patient Portal & [facility] Instructions Activity Restrictions/Additional Instructions: Medication as directed. Ice or heat may help. Return for fever, any other problems including numbness to the groin, significant lower extremity weakness, loss of your control of bladder function or bowel function, other concerns. Call your doctor in the morning for a follow-up appointment. Print Language: Yoruba Coding Level of Care Code ED [employer] for [employer]
== END 2024-12-04 03:34 | disposition home or self-care (01) ==
PROVIDERS: Emergency Provider Emergency Medicine; PCP Nurse Practitioner Family
DX: S39.012A Strain of muscle, fascia and tendon of lower back, initial encounter (principal); X58.XXXA Exposure to other specified factors, initial encounter
CPT/HCPCS: 72131; 96374; 96375; 99285; J1100; J1171; J2360; J2405